=== PATIENT | female | born 1960 | race Two or more races ===

== ENCOUNTER 2021-04-20 12:38 | Outpatient (REF) | payer OTHER, MEDICAID, SELFPAY ==
--- NOTE | ~2021-04-20 | MM_ITS ---
EXAMINATION: BONE DENSITOMETRY CLINICAL INDICATION: Encounter for screening for osteoporosis. COMPARISON: None (current study represents initial baseline exam). TECHNIQUE: Using a Apaja DXA System (software version: 13.1) manufactured by [employer], dual-energy x-ray absorptiometry was performed of the lumbar spine and left hip. The images are of good technical quality. Summary results are attached. FINDINGS: AP SPINE L1-L4: BMD 1.015 g/cm2, Z-score -0.1, T-score -1.4, osteopenia. LEFT FEMUR, NECK: BMD 0.701 g/cm2, Z-score -1.1, T-score -2.4, osteopenia. LEFT FEMUR, TOTAL: BMD 0.810 g/cm2, Z-score -0.6, T-score -1.6, osteopenia. IDENTIFIED RISK FACTORS: Menopause, hysterectomy, bilateral oophorectomy. HISTORY OF FRACTURE: Pelvis, age 34. MEDICATIONS: Calcium or multivitamin. MM/XR DEXA axial skeleton IMPRESSION: 1. DIAGNOSIS: Osteopenia based on the lowest T-score value of -2.4 in the femoral neck applying World Health Organization criteria. 2. 10-YEAR FRACTURE RISK PREDICTION, FRAX: Major osteoporotic fracture (clinical spine, forearm, hip or shoulder) 6.7%. Hip fracture 1.2%. 3. Treatment Recommendations: NOF guidelines recommend consideration for treatment in postmenopausal women and men age 50 and older presenting with the following: -A hip or vertebral (clinical or morphometric) fracture. -T-score less than or equal to -2.5 at the femoral neck or spine after appropriate evaluation to exclude secondary causes. -Low bone mass at the hip or spine and a 10-year fracture probability by FRAX of greater than or equal to 3% for hip fracture or greater than or equal to 20% for major osteoporotic fracture based on the [place] adapted WHO algorithm. 4. Other Recommendations: All treatment decisions require clinical judgment and consideration of individual patient factors, including patient preferences, comorbidities, previous drug use, risk factors not captured in the FRAX model (e.g. frailty, falls, vitamin D deficiency, increased bone turnover, interval significant decline in bone density) and possible under or overestimation of fracture risk by FRAX. Additional medical evaluation for secondary cause of low bone mineral density may be appropriate. FUTURE SCAN RECOMMENDATION: People with diagnosed cases of osteoporosis or at high risk for fracture should have regular bone mineral density tests. For patients eligible for Medicare, routine testing is allowed once every 2 years. The testing frequency can be increased to one year for patients who have rapidly progressing disease, those who are receiving or discontinuing medical therapy to restore bone mass, or have additional risk factors.
== END 2021-04-20 12:39 | disposition home or self-care (01) ==
LOC: HO.MAMMO 12:38
PROVIDERS: PCP Nurse Practitioner; Visit Provider Nurse Practitioner
DX: Z13.820 Encounter for screening for osteoporosis (principal); M85.80 Other specified disorders of bone density and structure, unspecified site; Z78.0 Asymptomatic menopausal state; Z90.710 Acquired absence of both cervix and uterus; Z79.899 Other long term (current) drug therapy
CPT/HCPCS: 77080

== ENCOUNTER 2021-05-05 12:58 | Outpatient (REF) | payer OTHER, MEDICAID, SELFPAY ==
--- NOTE | ~2021-05-05 | MM_ITS ---
EXAMINATION: MM SCREENING DIGITAL BREAST TOMOSYNTHESIS, BILATERAL CLINICAL INFORMATION: Screening. Asymptomatic. Age 60. No prior breast imaging. No known family history breast cancer. The lifetime risk of breast cancer based on the Tyrer-Cuzick Model is 5%. COMPARISON: None (current study represents initial baseline exam). TECHNIQUE: Digital breast tomosynthesis is performed in both the craniocaudal and mediolateral oblique views along with computer-aided detection (CAD). Synthesized 2D images are generated from the tomosynthesis. FINDINGS: There are scattered areas of fibroglandular density (ACR BI-RADS breast composition Category b). There are no significant masses, abnormal calcifications, or other abnormalities. The axilla and skin contours are unremarkable. MM/MM tomosynthesis screening BI IMPRESSION: No mammographic evidence of malignancy. ASSESSMENT: BI-RADS 1: Negative RECOMMENDATION: Routine annual mammography screening. This patient's information was entered into a reminder system with a target due date for their next mammogram.
== END 2021-05-05 12:59 | disposition home or self-care (01) ==
LOC: HO.MAMMO 12:58
PROVIDERS: Visit Provider Nurse Practitioner
DX: Z12.31 Encounter for screening mammogram for malignant neoplasm of breast (principal)
CPT/HCPCS: 77063; 77067

== ENCOUNTER 2022-01-11 15:13 | Outpatient (REF) | payer OTHER, MEDICAID, SELFPAY ==
--- NOTE | ~2022-01-11 | XR_ITS ---
EXAMINATION: XR LUMBOSACRAL SPINE CLINICAL INFORMATION: Lumbago with sciatica right side COMPARISON: None TECHNIQUE: Three views of the lumbosacral spine. FINDINGS: There is normal lumbar lumbar lordosis. The vertebral heights, alignment and disc heights are normal. There is no visible acute fracture, dislocation or subluxation. SI joints are symmetrical and unremarkable XR/XR lumbar spine 2-3V IMPRESSION: Unremarkable lumbar spine examination.
== END 2022-01-11 15:14 | disposition home or self-care (01) ==
LOC: HO.XRAY 15:13
PROVIDERS: Visit Provider Emergency Medicine
DX: M54.41 Lumbago with sciatica, right side (principal)
CPT/HCPCS: 72100

== ENCOUNTER 2022-05-11 12:44 | Outpatient (REF) | payer OTHER, SELFPAY ==
--- NOTE | ~2022-05-11 | MM_ITS ---
EXAMINATION: MM SCREENING DIGITAL BREAST TOMOSYNTHESIS, BILATERAL CLINICAL INFORMATION: Screening. Asymptomatic. The lifetime risk of breast cancer based on the Tyrer-Cuzick Model is 4.1%. COMPARISON: Mammography: May 05, 2021 TECHNIQUE: Digital breast tomosynthesis is performed in both the craniocaudal and mediolateral oblique views along with computer-aided detection (CAD). Synthesized 2D images are generated from the tomosynthesis. FINDINGS: There are scattered areas of fibroglandular density (ACR BI-RADS breast composition Category b). There are no significant masses, abnormal calcifications, or other abnormalities. MM/MM tomosynthesis screening BI IMPRESSION: No significant changes from prior exam. ASSESSMENT: BI-RADS 1: Negative RECOMMENDATION: Routine annual mammography screening. This patient's information was entered into a reminder system with a target due date for their next mammogram.
== END 2022-05-11 12:45 | disposition home or self-care (01) ==
LOC: HO.MAMMO 12:44
PROVIDERS: PCP Registered Nurse; Visit Provider Nurse Practitioner
DX: Z12.31 Encounter for screening mammogram for malignant neoplasm of breast (principal)
CPT/HCPCS: 77063; 77067

== ENCOUNTER 2022-10-10 | Outpatient (REF) | payer OTHER, MEDICAID, SELFPAY | END 2022-10-10 00:01 | disposition home or self-care (01) | LOC: HO.HHCL | PROVIDERS: Visit Provider Registered Nurse | DX: R05.9 Cough, unspecified (principal); Z20.822 Contact with and (suspected) exposure to COVID-19 | CPT/HCPCS: 87070; 87636 ==

== ENCOUNTER 2022-12-08 08:49 | Outpatient (REF) | payer MEDICAID, OTHER, SELFPAY ==
[2022-12-08 11:13] LABS: MANUAL DIFF FLAG NO
[2022-12-08 11:32] LABS: Basophils Absolute Auto 0.1 X10*3/uL (0.0-0.2); Basophils Percent Auto 0.7 % (0-2); Eosinophils Absolute Auto 0.1 X10*3/uL (0.0-0.4); Eosinophils Percent Auto 1.7 % (0-4); Hematocrit 40.9 % (37.0-47.0); Hemoglobin 13.4 g/dl (12.0-16.0); Imm Gran Abs Auto 0.01 X10*3/uL (0.00-0.03); Imm Gran Pct Auto 0.1 % (0.0-0.4); Lymphocytes Absolute Auto 2.8 X10*3/uL (1.2-4.9); Lymphocytes Percent Auto 39.4 % (20-40); Mean Corpuscular HGB Conc 32.8 g/dl (31.0-35.0); Mean Corpuscular Hemoglobin 31.6 pg (27.0-33.0); Mean Corpuscular Volume 96.5 fL (80.0-98.0); Mean Platelet Volume 11.9 fL (9.4-12.3); Monocytes Absolute Auto 0.3 X10*3/uL (0.1-1.2); Monocytes Percent Auto 4.7 % (2-11); Neutrophils Absolute Auto 3.7 x10*3/uL (2.0-8.3); Neutrophils Percent Auto 53.4 % (45-73); Platelet Count 255 X10*3/uL (160-400); Red Blood Count 4.24 X10*6/uL (4.20-5.50)
[2022-12-08 11:58] LABS: Alanine Aminotransferase 26 U/L (0-31); Albumin Level 4.1 g/dL (3.5-5.0); Alkaline Phosphatase 59 U/L (39-117); Anion Gap 11 (12-20); Aspartate Amino Transferase 20 U/L (5-31); Bilirubin Total 0.8 mg/dL (0.0-1.0); Blood Urea Nitrogen 27 mg/dL (9-16); Calcium 9.6 mg/dL (8.4-10.2); Carbon Dioxide 27 mmol/L (22-29); Chloride 107 mmol/L (96-108); Estimated Glomerular Filt Rate 45; Glucose Random 148 mg/dL (60-115); Potassium 4.1 mmol/L (3.3-5.1); Sodium 141 mmol/L (135-145); Total Protein 7.4 g/dL (6.5-8.0)
[2022-12-11 10:09] LABS: HIV RNA PCR Qn Copies NOT DETECTED copies/mL (NOT DETECTED); HIV RNA PCR Qn Log Copies NOT DETECTED (NOT DETECTED)
== END 2022-12-08 08:50 | disposition home or self-care (01) ==
LOC: HO.HHCL 08:49
PROVIDERS: Visit Provider Internal Medicine
DX: B20 Human immunodeficiency virus [HIV] disease (principal)
CPT/HCPCS: 36415; 80053; 82550; 85025; 87536

== ENCOUNTER 2023-02-28 09:13 | Outpatient (AMB) | payer SELFPAY ==
--- NOTE | 2023-02-28 09:16 | A.OFFVIS_ITS ---
Intake Vital Signs 02/28/23 09:20 Height 5 ft 2 in Weight 132 lb 4.438 oz BMI 24.2 BP 140/57 H Blood Pressure Location Lt brachial Position Sitting Pulse 75 Intake Visit Reasons: laryngitis Intake Note: Anai presents in the office as a new patient. CC: She lost her voice a while ago. She was being treated for acid reflux and nothing seems to help so her PCP would like her to check her stomach. She gets a hot pain the last few days and she is not sure if it is gas pains. Allergies metformin Adverse Reaction (Mild, Verified 02/28/23 09:38) foot swelling HPI laryngitis HPI Details 62-year-old female with past medical his tory of hypertension, diabetes, hyperlipidemia is here today for initial consultation. Patient reports sore throat, dyspepsia, epigastric pain and bloating postprandially. Patient was seen by ENT and was referred to GI. Patient was started on omeprazole, takes on as needed basis. Patient reports that she has occasional postprandial abdominal bloating. Patient eats we, unable to eat apples as make her very bloated. Karine sid reports that she is moving her bowels daily for the most part. Patient states that she does feel like she empties completely. Occasionally patient might take laxative. Usually when she has bread she might get constipated. Patient states that she tries to eat healthy. Tries to keep her blood sugars low. Patient seen OBGYN at [facility] and was sent to see provider at [facility]. Patient believes that she had sigmoidoscopy done and was told that it was normal. Will send request for copy of her records from there. Patient denies melena, hematochezia, unintentional weight loss or ribbon like stools. Patient denies any dyspepsia, dysphagia or odynophagia today. Reports to have sinus issue that started 4 days ago. Patient is using Flonase twice a day. [facility] Surgical History (Updated 02/28/23 @ 09:21 by MISTY Ash) Hx of colonoscopy (Updated 02/28/23 @ 09:22 by MISTY Ash) Household Members: Children Alcohol intake: never Patient Tobacco Use Status: Never used Tobacco Review of Systems Const Denies weight gain and Denies weight loss ENT Reports no additional complaints, Denies dysphagia and Denies odynophagia Card Reports no additional complaints Resp Reports no additional complaints GI Reports abdominal pain (Epigastric), Denies belching, Denies melena, Reports bloating, Denies change in bowel habits, Denies dysphagia, Denies excessive flatus, Denies dyspepsia, Reports heartburn, Denies diarrhea, Denies loose stools, Denies nausea, Denies odynophagia and Denies vomiting Reports no additional complaints Musc Reports no additional complaints Neuro Reports no additional complaints Psych Reports no additional complaints Endo Reports no additional complaints Physical Exam Vital Signs: BMI result Body Mass Index 24.2 Const General: healthy appearing, no acute distress and well developed Nutritional Appearance: well nourished Orientation/consciousness: patient oriented x3 HEENT Head: Yes normal to inspection, Yes normocephalic and Yes atraumatic Face and sinus: Yes normal facial exam Mouth: Normal oral and palatal mucosa present Throat: Yes posterior oropharynx normal, Yes tonsils normal and Yes uvula midline Eyes General: appearance normal, both eyes and all related structures Neck Neck: Yes normal visual inspection, Yes full ROM and Yes trachea midline Thyroid: Thyroid normal Resp Effort & Inspection: normal respiratory effort, able to speak in complete sentences, no tracheal deviation and symmetric chest movement Auscultation: clear to auscultation bilaterally Cardio Rate: regular rate Heart sounds: S1 normal heart sound present and S2 normal heart sound present GI Inspection: Yes normal to inspection and No distended Palpation (GI): Soft to palpation, not firm, nontender and No hepatosplenomegaly present Auscultation: normal bowel sounds General: Yes no CVA tenderness Back/Spine/Pelvis Back: no CVA tenderness Skin General skin exam: elasticity normal, turgor normal and dry skin Neuro General: patient oriented x3 Psych Appearance: grossly normal Mental Status: mental status grossly normal Affect: normal affect Assessment & Plan Assessment & Plan (1) Postprandial abdominal bloating: Code(s): R14.0 - Abdominal distension (gaseous) (2) Postprandial epigastric pain: Code(s): R10.13 - Epigastric pain (3) GERD (gastroesophageal reflux disease): Code(s): K21.9 - Gastro-esophageal reflux disease without esophagitis Qualifiers: Esophagitis presence: esophagitis presence not specified Qualified Code(s): K21.9 - Gastro-esophageal reflux disease without esophagitis Plan Patient reports postprandial abdominal pain and bloating. Will rule out H pylori, celiac. Patient will follow FODMAP diet. List of food recommended as well as a soft food to avoid given to patient. Will check rest allergen, vitamin B12, folate, vitamin-D level. Patient will start taking Nexium. Patient states that she took Nexium many years ago for acid reflux and reports that was helpful. Discussed with patient avoiding dietary triggers in late night snacking. Staying upright for minimal 3 hours after meals discussed with patient. I will see patient in 6 weeks, sooner on as needed basis. Patient is agreeable to this plan and verbalizes understanding of instructions. She was given the opportunity to ask questions and all questions answered. Thank you for allowing me to participate in her care Orders: Orders H pylori Ag Stool Today K21.9 - Gastro-esophageal reflux disease without esophagitis Pancreatic Elastase-1 Today R10.9 - Unspecified abdominal pain Transglutaminase Ab IgG Today R10.9 - Unspecified abdominal pain Rast Allergen Today K21.9 - Gastro-esophageal reflux disease without esophagitis Transglutaminase IgA Today R10.9 - Unspecified abdominal pain Vitamin B12 and Folate Today R19.7 - Diarrhea, unspecified Vitamin D 25-OH (D2 and D3) Today E55.9 - Vitamin D deficiency, unspecified Medications: New esomeprazole magnesium (Nexium) 40 mg PO DAILY 30 caps 5RF K21.9 - Gastro- esophageal reflux disease without esophagitis Coding Level of Care Code New Pt Level 4 (71263) Diagnoses Postprandial abdominal bloating R14.0 Postprandial epigastric pain R10.13 Gastroesophageal reflux disease, unspecified whether esophagitis present K21.9 Esophagitis presence: esophagitis presence not specified Time Spent (min) 45 Comment 30 minutes spent with patient and additional 10 minutes spent reviewing her records
[2023-02-28 09:20] VITALS: BP 140/57; PULSE 75; BMI 24.2
== END 2023-02-28 10:08 | disposition home or self-care (01) ==
PROVIDERS: PCP Registered Nurse; Visit Provider Nurse Practitioner Family
DX: J04.0 Acute laryngitis (principal); K21.9 Gastro-esophageal reflux disease without esophagitis; R10.13 Epigastric pain
CPT/HCPCS: 99204

== ENCOUNTER 2023-02-28 09:13 | Outpatient (REF) | payer MEDICAID, OTHER, SELFPAY ==
[2023-02-28 11:57] LABS: Folate > 20.0 ng/mL (> or = 4.0); Vitamin B12 1074 pg/mL (200-900)
[2023-03-01 19:17] LABS: Transglutaminase Ab IgG <1.0 U/mL; Transglutaminase IgA <1.0 U/mL
[2023-03-04 13:33] LABS: Vitamin D 25-OH, D2 <4 ng/mL; Vitamin D 25-OH, D3 38 ng/mL; Vitamin D 25-OH, Total 38 ng/mL (30-100)
== END 2023-02-28 09:14 | disposition home or self-care (01) ==
LOC: HO.LAB 09:13
PROVIDERS: PCP Registered Nurse; Visit Provider Nurse Practitioner Family
DX: K21.9 Gastro-esophageal reflux disease without esophagitis (principal); R10.9 Unspecified abdominal pain; R19.7 Diarrhea, unspecified; E55.9 Vitamin D deficiency, unspecified; M72.0 Palmar fascial fibromatosis [Dupuytren]; M25.511 Pain in right shoulder; M79.641 Pain in right hand; I10 Essential (primary) hypertension; E11.9 Type 2 diabetes mellitus without complications; E78.5 Hyperlipidemia, unspecified; R10.13 Epigastric pain; J02.9 Acute pharyngitis, unspecified; R14.0 Abdominal distension (gaseous)
CPT/HCPCS: 36415; 82306; 82607; 82746; 86003; 86364; 99202; 99212

== ENCOUNTER 2023-02-28 10:54 | Outpatient (REF) | payer MEDICAID, OTHER, SELFPAY ==
--- NOTE | ~2023-02-28 | XR_ITS ---
EXAMINATION: XR HAND, RIGHT CLINICAL INFORMATION: Pain COMPARISON: None available. TECHNIQUE: Four views of the right hand. FINDINGS: No acute fracture or dislocation. Mild degenerative changes of the hand and wrist at distal interphalangeal joints with small osteophytes most notably involving the second and fifth DIP joints and subchondral cystic change in the wrist. Soft tissues are unremarkable. 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
== END 2023-02-28 10:55 | disposition home or self-care (01) ==
LOC: HO.HOSX 10:54
PROVIDERS: Visit Provider Orthopaedic Surgery
DX: M79.641 Pain in right hand (principal)
CPT/HCPCS: 73130

== ENCOUNTER 2023-02-28 13:42 | Outpatient (AMB) | payer SELFPAY ==
[2023-02-28 14:30] VITALS: BMI 24.1
--- NOTE | 2023-02-28 14:30 | MHC.OFFVIS ---
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 States she has small lumps at her MCP on lino aspect of hand. States this started about 3-4 months. Seen with a chiropractor who advised her to massage her hand. Patient also has limited ROM in her shoulder and is aware see may schedule an appt on her way out for shoulder evaluation. Hx of DM . States her last A1C was about 6.7 last time it was checked. 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 It is starting to limit her extension of the small finger at the MCP joint.. About 3 months ago she had some pain over the dorsal aspect of the right middle finger proximal phalanx with a painful vein. That seems to resolved on its own. She also complains of right shoulder pain which radiates down her arm, along with limited ROM. She sees a Chiropractor. She denies having trouble with numbness and tingling in her hands. She denies locking and catching, but reports that occasionally she will get a spasm in her hand. She is a Diabetic and says this is well-controlled. PFSH Surgical History (Updated 02/28/23 @ 09:21 by MISTY Ash) Hx of colonoscopy Social History (Updated 02/28/23 @ 09:22 by MISTY Ash) Household Members: Children Alcohol intake: never Patient Tobacco Use Status: Never used Tobacco Review of Systems Const All systems reviewed & are unremarkable except as noted in HPI and below Physical Exam Vital Signs: BMI result Body Mass Index 24.1 Const General: cooperative, healthy appearing and no acute distress Orientation/consciousness: patient oriented x3 HEENT Head: Yes normocephalic and Yes atraumatic Eyes EOM: EOMs intact bilaterally Resp Effort & Inspection: normal respiratory effort and able to speak in complete sentences Cardio Jugular venous distension: no JVD Skin General skin exam: turgor normal Rashes: no rashes Neuro General: patient oriented x3 Extrem Other: Evaluation of Right Upper Extremity: The patient is alert, oriented, and in no acute distress Neuro: Median, Ulnar, Radial nerves motor and sensory intact and sensation is normal to the tips of all digits Who thenar or intrinsic wasting. Vascular: Cap refill brisk ROM: She has a Dupuytrens contracture of the small finger, MCP 15-20/PIP 0 There is a cord extending from the mid palm out toward the small finger. She can make a fist and extend all her digits Skin: No lacerations or abrasions. General: No Ecchymosis. No Erythema or evidence of infection. Radiographs: 3 views of the right hand were taken and viewed by me today in clinic. They show no fractures or dislocations. She as some early basal joint osteoarthritis Psych Appearance: grossly normal Affect: normal affect Attitude: cooperative Assessment & Plan Assessment & Plan (1) Right shoulder pain: Code(s): M25.511 - Pain in right shoulder (2) Dupuytren's contracture of right hand: Code(s): M72.0 - Palmar fascial fibromatosis [Dupuytren] Plan Assessment & Plan: 1. Right small finger Dupuytrens contracture MCP 15-20/PIP 0 With a cord extending from the center of her palm I educated her about this condition I discussed operative and non-operative treatment options No acute intervention warranted at this time If her symptoms worsen she may benefit from surgery I recommend she remain active as tolerated 2. Right shoulder pain She will make an appointment to be seen regarding this I recommend she work on ROM exercises at home Scribed for Bronwyn Gonzalez MD by Desmond Moe, medical assistant supervisor, on 02/28/23 at 2:55 PM, EST. Orders: Orders XR hand RT min 3V Today M79.641 - Pain in right hand Coding Level of Care Code New Pt Level 3 (24339) Diagnoses Right shoulder pain M25.511 Dupuytren's contracture of right hand M72.0
== END 2023-02-28 15:10 | disposition home or self-care (01) ==
PROVIDERS: PCP Registered Nurse; Visit Provider Orthopaedic Surgery
DX: M25.511 Pain in right shoulder (principal); M72.0 Palmar fascial fibromatosis [Dupuytren]
CPT/HCPCS: 99203

== ENCOUNTER 2023-02-28 14:17 | Outpatient (REF) | payer OTHER, MEDICAID, SELFPAY ==
[2023-03-07 21:09] LABS: Pancreatic Elastase-1 >500 mcg/g
== END 2023-02-28 14:18 | disposition home or self-care (01) ==
LOC: HO.LNP 14:17
PROVIDERS: Visit Provider Nurse Practitioner Family
DX: K21.9 Gastro-esophageal reflux disease without esophagitis (principal); R10.9 Unspecified abdominal pain; M79.641 Pain in right hand; E55.9 Vitamin D deficiency, unspecified; R19.7 Diarrhea, unspecified
CPT/HCPCS: 82656; 87338

== ENCOUNTER 2023-04-05 13:44 | Outpatient (REF) | payer OTHER, SELFPAY | END 2023-04-05 13:45 | disposition home or self-care (01) | LOC: HO.HHCLNP 13:44 | PROVIDERS: Visit Provider Advanced Practice Midwife | DX: Z12.4 Encounter for screening for malignant neoplasm of cervix (principal); Z11.51 Encounter for screening for human papillomavirus (HPV) | CPT/HCPCS: 87624; 88142 ==

== ENCOUNTER 2023-04-05 16:40 | Outpatient (REF) | payer OTHER, SELFPAY ==
--- NOTE | ~2023-04-05 | XR_ITS ---
EXAMINATION: XR SHOULDER, RIGHT CLINICAL INFORMATION: Pain. COMPARISON: None available. TECHNIQUE: AP external rotation, Grashey, scapular Y, and axillary views of the right shoulder. FINDINGS: Bony alignment and mineralization are normal. The glenohumeral joint is intact. Acromioclavicular and coracoclavicular intervals are normal. There is mild osteoarthritic change of the acromioclavicular joint. No fracture or dislocation is seen. There is cortical irregularity of the greater tuberosity of the proximal right humerus. No soft tissue calcification or foreign body is seen. There is no right pneumothorax. XR/XR shoulder RT min 2V IMPRESSION: 1. No fracture or dislocation is seen. 2. There is mild osteoarthritic change of the right acromioclavicular joint. 3. There is cortical irregularity of the greater tuberosity of the proximal right humerus, which can be associated with rotator cuff impingement. No tova calcific tendinitis is seen.
== END 2023-04-05 16:41 | disposition home or self-care (01) ==
LOC: HO.HOSX 16:40
PROVIDERS: Visit Provider Orthopaedic Surgery
DX: M25.511 Pain in right shoulder (principal)
CPT/HCPCS: 73030

== ENCOUNTER 2023-04-06 10:56 | Outpatient (AMB) | payer OTHER, SELFPAY ==
--- NOTE | 2023-04-06 11:28 | MHC.OFFVIS ---
Intake Intake Visit Reasons: New Prob- Rt shoulder pain Intake Note: This is a 62 year old patient who reports right shoulder pain. X rays updated in the office today. She reports the pain has been happening for several years. She completed physical therapy for this issue in december and it did not help. She reports pain and limited range of motion and some difficulty with ADL's. She has tried accupuncture, chiropractor and exercise. Allergies metformin Adverse Reaction (Mild, Verified 04/06/23 11:33) foot swelling Medication List - Last Reconciled 04/06/23 by Cheyanne Duenas, PAULY aspirin 1 tab PO BEDTIME atorvastatin 20 mg PO QPM azelastine 1 spray intranasal BID xlimlznun-wianwchd-lqzshyq ala 50-200-25 mg (Biktarvy) 1 tab PO BEDTIME blood sugar diagnostic (FreeStyle Lite Strips) As directed calcium carbonate-vitamin D3 500 mg-10 mcg (400 unit) (Oyster Shell Calcium-Vitamin D3) 1 tab PO QAM docusate sodium 100 mg PO BEDTIME PRN empagliflozin (Jardiance) 25 mg PO QAM esomeprazole magnesium (Nexium) 40 mg PO DAILY ketotifen fumarate 0.025%(0.035%) (Eye Itch Relief) 1 drp ophthalmic (eye) BID lancets (TRUEplus Lancets) As directed lisinopril 5 mg PO QAM fweerstq-liw-LZ-lycopen-lutein 0.4 mg-300 mcg- 250 mcg (Cerovite Senior) 1 tab PO QAM sitagliptin phosphate (Januvia) 50 mg PO QAM vitamin B complex-folic acid 0.4 mg 1 tab PO QAM HPI New Prob- Rt shoulder pain HPI Details Anai is a 62 year old woman who presents with complaints of chronic right shoulder pain. She complains of pain with daily activity, along with limited ROM. She says her pain radiates down her arm at times. She feels limited in her ADLs at times by her poor function. She has found limited relief from PT, acupuncture, or seeing a Chiropractor in the past. [facility] Medical History (Updated 04/06/23 @ 15:39 by Jf Hays MD) Internal derangement of right shoulder Surgical History (Updated 02/28/23 @ 09:21 by Kenzie Dong, RMA) Hx of colonoscopy Social History (Updated 02/28/23 @ 09:22 by MISTY Ash) Household Members: Children Alcohol intake: never Patient Tobacco Use Status: Never used Tobacco Review of Systems Const All systems reviewed & are unremarkable except as noted in HPI and below Physical Exam Const General: no acute distress, alert and awake Orientation/consciousness: patient oriented x3 HEENT Head: Yes normocephalic and Yes atraumatic Eyes EOM: EOMs intact bilaterally Resp Effort & Inspection: normal respiratory effort and able to speak in complete sentences Cardio Jugular venous distension: no JVD Skin General skin exam: turgor normal Rashes: no rashes Neuro General: patient oriented x3 Extrem Other: 30/90/130/L5 4/5 empty can scapular recruitment with glenohumeral overhead motion Psych Appearance: grossly normal Affect: normal affect Attitude: cooperative Results Reviewed Results Reviewed: I personally reviewed relevant radiographs. nl shoulder radiographs Assessment & Plan Assessment & Plan (1) Internal derangement of right shoulder: Code(s): M24.811 - Other specific joint derangements of right shoulder, not elsewhere classified Plan: Weakness in abduction with altered mechabnics in setting of nl radiographs and no benefit with PT. MRI ordered Plan Scribed for Jf Hays MD by Desmond Moe, certified court/medical interpreter, on 04/06/23 at 11:40 AM, EST. Orders: Orders XR shoulder RT min 2V 04/06/23 M25.519 - Pain in unspecified shoulder MR shoulder RT wo con 04/06/23 M24.811 - Other specific joint derangements of right shoulder, not elsewhere classified Coding Level of Care Code Est Pt Level 4 (56123) Diagnoses Internal derangement of right shoulder M24.811
== END 2023-04-06 11:57 | disposition home or self-care (01) ==
PROVIDERS: PCP Registered Nurse; Visit Provider Orthopaedic Surgery
DX: M24.811 Other specific joint derangements of right shoulder, not elsewhere classified (principal)
CPT/HCPCS: 99214

== ENCOUNTER → 2023-04-06 10:56 | Outpatient (BNVA) | payer MEDICAID, OTHER, SELFPAY | PROVIDERS: PCP Registered Nurse; Visit Provider Orthopaedic Surgery | DX: M24.811 Other specific joint derangements of right shoulder, not elsewhere classified (principal) | CPT/HCPCS: 99212 ==

== ENCOUNTER 2023-04-11 09:30 | Outpatient (AMB) | payer OTHER, SELFPAY ==
--- NOTE | 2023-04-11 09:32 | A.OFFVIS_ITS ---
Intake Vital Signs 04/11/23 09:33 Height 5 ft 2 in Weight 132 lb 4.438 oz BMI 24.2 BP 158/60 H Blood Pressure Location Lt brachial Position Sitting Pulse 65 Intake Visit Reasons: 6 week follow up Intake Note: Anai presents in the office as a 6 week follow up. CC: She states that she had a test and just here for results. She still has issues in her stomach but they are not as bad as they were before. Allergies metformin Adverse Reaction (Mild, Verified 04/11/23 09:33) foot swelling HPI 6 week follow up HPI Details LAST VISIT Postprandial abdominal bloating Postprandial epigastric pain GERD (gastroesophageal reflux disease) Plan Patient reports postprandial abdominal pain and bloating. Will rule out H pylori, celiac. Patient will follow FODMAP diet. List of food recommended as well as a soft food to avoid given to patient. Will check rest allergen, vitamin B12, folate, vitamin-D level. Patient will start taking Nexium. Patient states that she took Nexium many years ago for acid reflux and reports that was helpful. Discussed with patient avoiding dietary triggers in late night snacking. Staying upright for minimal 3 hours after meals discussed with patient. I will see patient in 6 weeks, sooner on as needed basis. Patient is agreeable to this plan and verbalizes understanding of instructions. She was given the opportunity to ask questions and all questions answered. ? Thank you for allowing me to participate in her care Orders Orders H pylori Ag Stool Today K21.9 Pancreatic Elastase-1 Today R10.9 Transglutaminase Ab IgG Today R10.9 Rast Allergen Today K21.9 Transglutaminase IgA Today R10.9 Vitamin B12 and Folate Today R19.7 Vitamin D 25-OH (D2 and D3) Today E55.9 Medications New esomeprazole magnesium (Nexium) 40 mg PO DAILY 30 caps 5RF K21.9 TODAY'S VISIT: Patient is here today for follow-up and to discuss lab results. Patient had normal lab results. Reports that she is doing better taking Nexium. Her symptoms of acid reflux are suppressed for the most part. Patient however continues to have occasional acid reflux and dyspepsia depending on what she eats. Patient states that she is trying to control her diet and avoiding lactose. Patient would like to find specialist around here for anoscopy. Patient had endoscopy done in October of 2022 for a no canal lesion for management of ASCUS on Pap smear. 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 Patient has an appointment with her soon, however she does not have anyone to take her to the appointment. We will request a note from [facility] from her machine tank operator Dr. Mariann Hartley. Patient reports that she is moving her bowels well denies any rectal pain. Patient denies any melena, hematochezia, unintentional weight loss or ribbon like stools. Patient denies any mucus or any drainage from her rectum. [facility] Medical History (Updated 04/06/23 @ 15:39 by Jf Hays MD) Internal derangement of right shoulder Surgical History (Updated 02/28/23 @ 09:21 by MISTY Ash) Hx of colonoscopy Social History (Updated 02/28/23 @ 09:22 by MISTY Ash) Household Members: Children Alcohol intake: never Patient Tobacco Use Status: Never used Tobacco Review of Systems Const Denies weight gain and Denies weight loss ENT Reports no additional complaints, Denies dysphagia and Denies odynophagia Card Reports no additional complaints Resp Reports no additional complaints GI Denies abdominal pain, Denies belching, Denies melena, Denies bloating, Denies change in bowel habits, Denies dysphagia, Denies excessive flatus, Denies dyspepsia, Reports heartburn (occasional), Denies diarrhea, Denies loose stools, Denies nausea, Denies odynophagia and Denies vomiting Reports no additional complaints Musc Reports no additional complaints Neuro Reports no additional complaints Psych Reports no additional complaints Endo Reports no additional complaints Physical Exam Vital Signs: Last Vital Signs Pulse 65 04/11/23 09:33 BP 158/60 H 04/11/23 09:33 BMI result Body Mass Index 24.2 Const General: healthy appearing, no acute distress and well developed Nutritional Appearance: well nourished Orientation/consciousness: patient oriented x3 HEENT Head: Yes normal to inspection, Yes normocephalic and Yes atraumatic Face and sinus: Yes normal facial exam Mouth: Normal oral and palatal mucosa present Throat: Yes posterior oropharynx normal, Yes tonsils normal and Yes uvula midline Eyes General: appearance normal, both eyes and all related structures Neck Neck: Yes normal visual inspection, Yes full ROM and Yes trachea midline Thyroid: Thyroid normal Resp Effort & Inspection: normal respiratory effort, able to speak in complete sentences, no tracheal deviation and symmetric chest movement Auscultation: clear to auscultation bilaterally Cardio Rate: regular rate GI Inspection: Yes normal to inspection and No distended Palpation (GI): Soft to palpation, not firm, nontender and No hepatosplenomegaly present Auscultation: normal bowel sounds General: Yes no CVA tenderness Back/Spine/Pelvis Back: no CVA tenderness Skin General skin exam: elasticity normal, turgor normal and dry skin Neuro General: patient oriented x3 Psych Appearance: grossly normal Mental Status: mental status grossly normal Results Reviewed Results Reviewed: Laboratory Tests 02/28/23 02/28/23 02/28/23 10:28 10:28 11:03 Vitamin B12 1074 H 25-OH Vitamin D Total 38 Folate > 20.0 Stool Pancreat Elastase >500 Tiss Transglutamin IgG <1.0 Tiss Transglutamin IgA <1.0 Assessment & Plan Assessment & Plan (1) Postprandial abdominal bloating: Code(s): R14.0 - Abdominal distension (gaseous) (2) Postprandial epigastric pain: Code(s): R10.13 - Epigastric pain (3) GERD (gastroesophageal reflux disease): Code(s): K21.9 - Gastro-esophageal reflux disease without esophagitis Qualifiers: Esophagitis presence: esophagitis presence not specified Qualified Code (s): K21.9 - Gastro-esophageal reflux disease without esophagitis Plan Patient will continue diet modification. Avoiding dietary triggers. Avoid late night snacking. Low FODMAP diet discussed with patient. Request for medical records from her machine tank operator. Continue Nexium in the morning, continue Colace. I will see patient in 4 weeks we will discuss going for upper endoscopy and patient will be sent for colonoscopy. She is agreeable to this plan and verbalizes understanding of instructions. She was given the opportunity to ask questions and all questions answered. Thank you for allowing me to participate in her care Coding Level of Care Code Est Pt Level 4 (79945) Diagnoses Postprandial abdominal bloating R14.0 Postprandial epigastric pain R10.13 Gastroesophageal reflux disease, unspecified whether esophagitis present K21.9 Esophagitis presence: esophagitis presence not specified Time Spent (min) 35 Comment 20 minutes spent with patient and additional 15 minutes spent reviewing her records
[2023-04-11 09:33] VITALS: BP 158/60; PULSE 65; BMI 24.2
== END 2023-04-11 10:02 | disposition home or self-care (01) ==
PROVIDERS: PCP Registered Nurse; Visit Provider Nurse Practitioner Family
DX: R14.0 Abdominal distension (gaseous) (principal); R10.13 Epigastric pain; K21.9 Gastro-esophageal reflux disease without esophagitis
CPT/HCPCS: 99214

== ENCOUNTER → 2023-04-11 09:30 | Outpatient (BNVA) | payer OTHER, SELFPAY | PROVIDERS: PCP Registered Nurse; Visit Provider Nurse Practitioner Family | DX: R14.0 Abdominal distension (gaseous) (principal); R10.13 Epigastric pain; K21.9 Gastro-esophageal reflux disease without esophagitis | CPT/HCPCS: 99212 ==

== ENCOUNTER 2023-04-24 10:18 | Outpatient (AMB) | payer OTHER, SELFPAY ==
--- NOTE | 2023-04-24 10:21 | A.OFFVIS_ITS ---
Intake Intake Visit Reasons: Ov- Right shoulder MRI Review Intake Note: Anai is a 62 year old right hand dominant female who presents today for an MRI review of her right shoulder. Pain ongoing for several years now. MRI done at [facility] Allergies metformin Adverse Reaction (Mild, Verified 04/11/23 09:33) foot swelling HPI Ov- Right shoulder MRI Review HPI Details Anai is a 62 year old woman with chronic right shoulder pain, who presents for an MRI review. She complains of pain with daily activity, along with limited ROM. She feels limited in her ADLs at times by her poor function. She has found limited relief from PT, acupuncture, or seeing a Chiropractor in the past. [facility] Medical History (Updated 04/24/23 @ 10:47 by Jf Hays MD) Internal derangement of right shoulder Surgical History (Updated 02/28/23 @ 09:21 by MISTY Ash) Hx of colonoscopy Social History (Updated 02/28/23 @ 09:22 by MISTY Ash) Household Members: Children Alcohol intake: never Patient Tobacco Use Status: Never used Tobacco Review of Systems Const All systems reviewed & are unremarkable except as noted in HPI and below Physical Exam Const General: no acute distress, alert and awake Orientation/consciousness: patient oriented x3 HEENT Head: Yes normocephalic and Yes atraumatic Eyes EOM: EOMs intact bilaterally Resp Effort & Inspection: normal respiratory effort and able to speak in complete sentences Cardio Jugular venous distension: no JVD Skin General skin exam: turgor normal Rashes: no rashes Neuro General: patient oriented x3 Extrem Other: 5 deg ER on right compared to 55 on left Psych Appearance: grossly normal Affect: normal affect Attitude: cooperative Results Reviewed Results Reviewed: I personally reviewed relevant radiographs. small supraspinatus partial thickness tear Assessment & Plan Assessment & Plan (1) Adhesive capsulitis of right shoulder: Code(s): M75.01 - Adhesive capsulitis of right shoulder Plan: Clear adhesive capsulitis PT f/u 3 mo Plan Prepared for Jf Hays MD by Desmond Moe, medical advisor, on 04/24/23 at 10:31 AM, EST. Orders: Orders PT Evaluation and Treatment Today M75.01 - Adhesive capsulitis of right shoulder Coding Level of Care Code Est Pt Level 4 (38572) Diagnoses Adhesive capsulitis of right shoulder M75.01
== END 2023-04-24 10:56 | disposition home or self-care (01) ==
PROVIDERS: PCP Registered Nurse; Visit Provider Orthopaedic Surgery
DX: M75.01 Adhesive capsulitis of right shoulder (principal)
CPT/HCPCS: 99213

== ENCOUNTER → 2023-04-24 10:18 | Outpatient (BNVA) | payer OTHER, SELFPAY | PROVIDERS: PCP Registered Nurse; Visit Provider Orthopaedic Surgery | DX: M75.01 Adhesive capsulitis of right shoulder (principal) | CPT/HCPCS: 99212 ==

== ENCOUNTER 2023-05-09 09:07 | Outpatient (AMB) | payer OTHER, SELFPAY ==
--- NOTE | 2023-05-09 09:11 | MHC.OFFVIS ---
Intake Vital Signs 05/09/23 09:16 Height 5 ft 2 in Weight 130 lb BMI 23.8 BP 147/68 H Blood Pressure Location Lt brachial Position Sitting Pulse 62 Intake Visit Reasons: 4 week follow up Intake Note: Patient 4 weeks follow up for GERD. Patient cc: acid reflex on and off na d sometimes constipation come and go. Denies any other GI issues. [employer] Manager Required: No Accompanied by: Self / Same As Patient Allergies metformin Adverse Reaction (Mild, Verified 05/09/23 09:11) foot swelling HPI 4 week follow up HPI Details LAST VISIT: HPI Patient is here today for follow-up and to discuss lab results. Patient had normal lab results. Reports that she is doing better taking Nexium. Her symptoms of acid reflux are suppressed for the most part. Patient however continues to have occasional acid reflux and dyspepsia depending on what she eats. Patient states that she is trying to control her diet and avoiding lactose. Patient would like to find specialist around here for anoscopy. Patient had endoscopy done in October of 2022 for anal canal lesion for management of ASCUS on Pap smear. 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 Patient has an appointment with her soon, however she does not have anyone to take her to the appointment. We will request a note from [facility] from her fur glazer Dr. Mariann Hartley. Patient reports that she is moving her bowels well denies any rectal pain. Patient denies any melena, hematochezia, unintentional weight loss or ribbon like stools. Patient denies any mucus or any drainage from her rectum. ASSESSMENT AND PLAN Postprandial abdominal bloating Postprandial epigastric pain GERD (gastroesophageal reflux disease) Plan Patient will continue diet modification. Avoiding dietary triggers. Avoid late night snacking. Low FODMAP diet discussed with patient. Request for medical records from her fur glazer. Continue Nexium in the morning, continue Colace. I will see patient in 4 weeks we will discuss going for upper endoscopy and patient will be sent for colonoscopy. She is agreeable to this plan and verbalizes understanding of instructions. She was given the opportunity to ask questions and all questions answered. ? TODAY'S VISIT Patient is here today for follow-up and to discuss going for colonoscopy. Patient had her last appointment with rectal surgeon last month. Patient requested to switch to stay closer, however patient states that her provider send her to [facility]. Patient is due to go for colonoscopy. As mentioned above patient has a history of HIV on Biktarvy. Reports that Nexium is helping her, however depending on what she eats she might have acid reflux and postprandial abdominal bloating. Patient reports that she is moving her bowels without any issues. Denies any melena, hematochezia, unintentional weight loss or ribbon like stools. Patient reports occasional dyspepsia without dysphagia or odynophagia. Patient denies any issues with anesthesia in the past. On low-dose aspirin. Denies any history of sleep apnea. Patient currently takes medications for her diabetes. Denies any cardiac or respiratory symptoms. [facility] Medical History (Updated 05/09/23 @ 13:24 by Christiana Rosas, [facility]) Rectal lesion Internal derangement of right shoulder Surgical History Hx of colonoscopy Social History Household Members: Children Alcohol intake: never Patient Tobacco Use Status: Never used Tobacco Review of Systems Const Denies weight gain and Denies weight loss ENT Reports no additional complaints, Denies dysphagia and Denies odynophagia Card Reports no additional complaints Resp Reports no additional complaints GI Reports abdominal pain (Epigastric), Denies belching, Denies melena, Reports bloating, Denies change in bowel habits, Denies dysphagia, Denies excessive flatus, Reports dyspepsia, Reports heartburn, Denies diarrhea, Denies loose stools, Denies nausea, Denies odynophagia and Denies vomiting Reports no additional complaints Musc Reports no additional complaints Neuro Reports no additional complaints Psych Reports no additional complaints Endo Reports no additional complaints Physical Exam Vital Signs: Last Vital Signs Pulse 62 05/09/23 09:16 BP 147/68 H 05/09/23 09:16 BMI result Body Mass Index 23.8 Const General: healthy appearing, no acute distress and well developed Nutritional Appearance: well nourished Orientation/consciousness: patient oriented x3 Resp Effort & Inspection: normal respiratory effort, able to speak in complete sentences, no tracheal deviation and symmetric chest movement Auscultation: clear to auscultation bilaterally Cardio Rate: regular rate GI Inspection: Yes normal to inspection and No distended Palpation (GI): Soft to palpation, not firm, nontender and No hepatosplenomegaly present Auscultation: normal bowel sounds General: Yes no CVA tenderness Back/Spine/Pelvis Back: no CVA tenderness Skin General skin exam: elasticity normal, turgor normal and dry skin Neuro General: patient oriented x3 Psych Appearance: grossly normal Mental Status: mental status grossly normal Assessment & Plan Assessment & Plan (1) Postprandial abdominal bloating: Code(s): R14.0 - Abdominal distension (gaseous) (2) Postprandial epigastric pain: Code(s): R10.13 - Epigastric pain (3) GERD (gastroesophageal reflux disease): Code(s): K21.9 - Gastro-esophageal reflux disease without esophagitis Qualifiers: Esophagitis presence: esophagitis presence not specified Qualified Code(s): K21.9 - Gastro-esophageal reflux disease without esophagitis (4) Screen for colon cancer: Code(s): Z12.11 - Encounter for screening for malignant neoplasm of colon (5) Rectal lesion: Code(s): K62.9 - Disease of anus and rectum, unspecified Plan Continue Nexium. Patient can take famotidine at bedtime to help her with dyspepsia. However patient was encouraged to continue avoiding dietary triggers and late night snacking. Staying upright for minimal 3 hours after meals discussed with patient. Patient will be sent for upper endoscopy to rule out gastritis, duodenitis, esophagitis, Jin's, duodenal or gastric ulcers. Patient will be sent for colonoscopy. Discussed with patient the importance of good bowel prep day before procedure as well as clear liquid diet. What to expect before during and after procedure discussed with patient. History of HIV on Biktarvy. On low-dose aspirin. No history of sleep apnea. No issues with anesthesia in the past. I will see patient after the procedure, sooner on as needed basis. Patient is agreeable to this plan and verbalizes understanding of instructions. She was given the opportunity to ask questions and all questions answered. Thank you for allowing me to participate in care Please check rectum for any lesions if seen sent for biopsy Medications: New polyethylene glycol 3350 (Miralax) As directed by gastroenterology department at [facility] 238 grams PO ONCE 238 grams 0RF Z12.11 - Encounter for screening for malignant neoplasm of colon famotidine (Pepcid) 20 mg PO BEDTIME 30 tabs 3RF K21.9 - Gastro-esophageal reflux disease without esophagitis bisacodyl (Dulcolax (bisacodyl)) take 4 tabs at noon the day before your colonoscopy 20 mg (4 x 5 mg) PO ONCE 1 day 4 tabs 0RF Z12.11 - Encounter for screening for malignant neoplasm of colon Refilled esomeprazole magnesium (Nexium) 40 mg PO DAILY 30 caps 5RF K21.9 - Gastro-esophageal reflux disease without esophagitis Coding Level of Care Code Est Pt Level 4 (05780) Diagnoses Postprandial abdominal bloating R14.0 Postprandial epigastric pain R10.13 Gastroesophageal reflux disease, unspecified whether esophagitis present K21.9 Esophagitis presence: esophagitis presence not specified Screen for colon cancer Z12.11 Rectal lesion K62.9 Time Spent (min) 40 Comment 25 minutes spent with patient and additional 15 minutes spent reviewing her records
[2023-05-09 09:16] VITALS: BP 147/68; PULSE 62; BMI 23.8
== END 2023-05-09 10:24 | disposition home or self-care (01) ==
PROVIDERS: PCP Registered Nurse; Visit Provider Nurse Practitioner Family
DX: R14.0 Abdominal distension (gaseous) (principal); R10.13 Epigastric pain; K21.9 Gastro-esophageal reflux disease without esophagitis; Z12.11 Encounter for screening for malignant neoplasm of colon; K62.9 Disease of anus and rectum, unspecified
CPT/HCPCS: 99214

== ENCOUNTER → 2023-05-09 09:07 | Outpatient (BNVA) | payer OTHER, SELFPAY | PROVIDERS: PCP Registered Nurse; Visit Provider Nurse Practitioner Family | DX: Z12.11 Encounter for screening for malignant neoplasm of colon (principal); K21.9 Gastro-esophageal reflux disease without esophagitis; K62.9 Disease of anus and rectum, unspecified; R14.0 Abdominal distension (gaseous); R10.13 Epigastric pain | CPT/HCPCS: 99212 ==

== ENCOUNTER 2023-05-17 08:02 | Outpatient (REF) | payer OTHER, SELFPAY ==
--- NOTE | ~2023-05-17 | MM_ITS ---
EXAMINATION: BONE DENSITOMETRY CLINICAL INDICATION: Postmenopausal. History of pelvic fracture. COMPARISON: Baseline BD dated 04/20/2021. TECHNIQUE: Using a Vertigo DXA System (software version: 13.1) manufactured by [employer], dual-energy x-ray absorptiometry was performed of the lumbar spine and left hip. The images are of good technical quality. Summary results are attached. FINDINGS: LEFT FEMUR, NECK: Current: BMD 0.809 g/cm2, Z-score -0.3, T-score -1.6, osteopenia. Baseline: BMD 0.701 g/cm2. LEFT FEMUR, TOTAL: Current: BMD 0.860 g/cm2, Z-score -0.1, T-score -1.2, osteopenia, 6.2% increase from baseline (<5% change is not significant). Baseline: BMD 0.810 g/cm2. AP SPINE L1-L4: Current: BMD 1.016 g/cm2, Z-score 0.1, T-score -1.4, osteopenia, 0.1% increase from baseline (<5% change is not significant). Baseline: BMD 1.015 g/cm2. IDENTIFIED RISK FACTORS: Early menopause, history of fracture (adult), hysterectomy, bilateral oophorectomy, secondary osteoporosis. HISTORY OF FRACTURE: Pelvis. MEDICATIONS: Calcium or multivitamin. Vitamin D. MM/XR DEXA axial skeleton IMPRESSION: 1. DIAGNOSIS: Osteopenia based on the lowest T-score value of -1.6 in the femoral neck applying World Health Organization criteria. 2. 10-YEAR FRACTURE RISK PREDICTION, FRAX: Major osteoporotic fracture (clinical spine, forearm, hip or shoulder) 8.8%. Hip fracture 1.0%. 3. Treatment Recommendations: NOF guidelines recommend consideration for treatment in postmenopausal women and men age 50 and older presenting with the following: -A hip or vertebral (clinical or morphometric) fracture. -T-score less than or equal to -2.5 at the femoral neck or spine after appropriate evaluation to exclude secondary causes. -Low bone mass at the hip or spine and a 10-year fracture probability by FRAX of greater than or equal to 3% for hip fracture or greater than or equal to 20% for major osteoporotic fracture based on the [place] adapted WHO algorithm. 4. Other Recommendations: All treatment decisions require clinical judgment and consideration of individual patient factors, including patient preferences, comorbidities, previous drug use, risk factors not captured in the FRAX model (e.g. frailty, falls, vitamin D deficiency, increased bone turnover, interval significant decline in bone density) and possible under or overestimation of fracture risk by FRAX. Additional medical evaluation for secondary cause of low bone mineral density may be appropriate. FUTURE SCAN RECOMMENDATION: People with diagnosed cases of osteoporosis or at high risk for fracture should have regular bone mineral density tests. For patients eligible for Medicare, routine testing is allowed once every 2 years. The testing frequency can be increased to one year for patients who have rapidly progressing disease, those who are receiving or discontinuing medical therapy to restore bone mass, or have additional risk factors.
== END 2023-05-17 08:03 | disposition home or self-care (01) ==
LOC: HO.MAMMO 08:02
PROVIDERS: PCP Physician Assistant; Visit Provider Advanced Practice Midwife
DX: Z12.31 Encounter for screening mammogram for malignant neoplasm of breast (principal); Z13.820 Encounter for screening for osteoporosis; Z78.0 Asymptomatic menopausal state
CPT/HCPCS: 77063; 77067; 77080

== ENCOUNTER → 2023-05-17 09:15 | Outpatient (BNV) | payer OTHER, SELFPAY | PROVIDERS: PCP Physician Assistant; Visit Provider Radiology Diagnostic Radiology | DX: Z12.31 Encounter for screening mammogram for malignant neoplasm of breast (principal) | CPT/HCPCS: 77063; 77067 ==

== ENCOUNTER 2023-06-23 08:36 | Outpatient (REF) | payer OTHER, SELFPAY ==
[2023-06-23 11:35] LABS: Appearance Urine Clear; Color Urine Yellow; Glucose Urine UA >=1000 mg/dL (Negative); Leukocyte Esterase Urine Negative (Negative); Nitrite Urine Negative (Negative); PH 5.5 (5.0-9.0); Specific Gravity - Urine >= 1.030 (1.005-1.025); UMIC TRIGGER UACC YES; Urine Blood Negative (Negative); Urine Ketones Negative (Negative); Urine Protein Negative (Neg-Trace)
[2023-06-23 11:36] LABS: MANUAL DIFF FLAG NO
[2023-06-23 11:42] LABS: Basophils Percent Auto 0.5 % (0-2); Eosinophils Absolute Auto 0.2 X10*3/uL (0.0-0.4); Eosinophils Percent Auto 3.5 % (0-4); Hematocrit 37.1 % (37.0-47.0); Hemoglobin 12.1 g/dl (12.0-16.0); Imm Gran Abs Auto 0.01 X10*3/uL (0.00-0.03); Imm Gran Pct Auto 0.2 % (0.0-0.4); Lymphocytes Absolute Auto 2.8 X10*3/uL (1.2-4.9); Lymphocytes Percent Auto 44.6 % (20-40); Mean Corpuscular HGB Conc 32.6 g/dl (31.0-35.0); Mean Corpuscular Hemoglobin 31.1 pg (27.0-33.0); Mean Corpuscular Volume 95.4 fL (80.0-98.0); Mean Platelet Volume 11.1 fL (9.4-12.3); Monocytes Absolute Auto 0.4 X10*3/uL (0.1-1.2); Monocytes Percent Auto 6.3 % (2-11); Neutrophils Absolute Auto 2.8 x10*3/uL (2.0-8.3); Neutrophils Percent Auto 44.9 % (45-73); Platelet Count 273 X10*3/uL (160-400); Red Blood Count 3.89 X10*6/uL (4.20-5.50); Red Cell Distribution Width 14.6 % (11.0-16.0); White Blood Count 6.2 X10*3/uL (4.8-10.8)
[2023-06-23 12:01] LABS: Bacteria Urine Trace (None Seen); Hyaline Casts Urine 0-2 /LPF (0-2); RBC Urine 0-2 /HPF (0-2); UACC Culture Trigger YES
[2023-06-23 12:15] LABS: Alanine Aminotransferase 46 U/L (0-31); Albumin Level 4.1 g/dL (3.5-5.0); Alkaline Phosphatase 71 U/L (39-117); Anion Gap 12 (12-20); Aspartate Amino Transferase 32 U/L (5-31); Bilirubin Total 0.5 mg/dL (0.0-1.0); Blood Urea Nitrogen 21 mg/dL (9-16); Carbon Dioxide 28 mmol/L (22-29); Chloride 107 mmol/L (96-108); Cholesterol 87 mg/dL (<200); Estimated Glomerular Filt Rate 55; Glucose Random 106 mg/dL (60-115); HDL Cholesterol 29 mg/dL (>40); LDL Cholesterol Calculated 45 mg/dL (<100); Potassium 4.1 mmol/L (3.3-5.1); Sodium 143 mmol/L (135-145); Total Protein 7.5 g/dL (6.5-8.0); Triglycerides 66 mg/dL (<150)
[2023-06-23 13:12] LABS: Reflex LDLD? No
[2023-06-24 11:58] LABS: Absolute CD3 Count 1942 cells/uL (840-3060); Absolute CD4 Count 993 cells/uL (490-1740); Absolute CD8 Count 920 cells/uL (180-1170); Absolute Lymphocytes 2942 cells/uL (850-3900); CD4 CD8 Ratio 1.08 (0.86-5.00); Percent CD3 Cells 66 % (57-85); Percent CD4 Cells 34 % (30-61); Percent CD8 Cells 31 % (12-42)
[2023-06-24 15:33] LABS: HIV RNA PCR Qn Copies 134 copies/mL (NOT DETECTED); HIV RNA PCR Qn Log Copies 2.13 (NOT DETECTED)
[2023-06-25 22:28] LABS: TS Negative Control Passed; TS Panel A 0; TS Panel B 0; TS Positive Control Passed; TSpotTB Negative (Negative)
[2023-06-26 04:13] LABS: Syphilis Screen Nonreactive (Nonreactive)
[2023-06-26 04:23] LABS: ~Hepatitis C Antibody Nonreactive (Nonreactive)
== END 2023-06-23 08:37 | disposition home or self-care (01) ==
LOC: HO.HHCL 08:36
PROVIDERS: Visit Provider Internal Medicine
DX: B20 Human immunodeficiency virus [HIV] disease (principal)
CPT/HCPCS: 36415; 80053; 80061; 81001; 85025; 86359; 86360; 86481; 86780; 86803; 87086; 87536

== ENCOUNTER 2023-06-27 13:21 | Day surgery (SDC) | payer OTHER, SELFPAY ==
--- NOTE | 2023-06-26 10:02 | HO.ANESPROP2 ---
Documented by User: Gali Woodard NP 06/26/23 10:07 HPI - Anesthesia Eval Consult details Narrative: 63yo F for Upper Endoscopy and Colonoscopy Anesthesia Pre-Procedure Meds Is the patient on any of the following meds?: Any other SGL-1 drugs or drugs that delay gastric emptying (Januvia) PMFSH Active Problems Active Problems: All Active Problems (Updated 05/09/23 @ 13:[address] [facility]) Rectal lesion (Acute) Adhesive capsulitis of right shoulder (Acute) Internal derangement of right shoulder (Acute) Dupuytren's contracture of right hand (Acute) Right shoulder pain (Acute) Past Medical History Medical History HIV (human immunodeficiency virus infection) Rectal lesion Internal derangement of right shoulder Surgical History Surgical History Hx of colonoscopy Social History Social History Household Members: Children Alcohol intake: never Patient Tobacco Use Status: Never used Tobacco Meds Allergies Allergy/AdvReac Type Severity Reaction Status Date / Time metformin AdvReac Mild foot Verified 05/09/23 09:11 swelling Home Medications Medication Instructions Recorded Confirmed Last Taken Type aspirin 81 mg chewable tablet 1 tab PO BEDTIME 02/28/23 04/06/23 Unknown History atorvastatin 20 mg tablet 20 mg PO QPM 02/28/23 04/06/23 Unknown History azelastine 137 mcg (0.1 %) nasal 1 spray intranasal BID 02/28/23 04/06/23 Unknown History spray aerosol bictegravir 50 mg-emtricitabine 1 tab PO BEDTIME 02/28/23 04/06/23 Unknown History 200 mg-tenofovir alafenam 25 mg tablet (Biktarvy) blood sugar diagnostic (FreeStyle #10 ea 02/28/23 04/06/23 Unknown History Lite Strips) calcium carbonate 500 mg-vitamin 1 tab PO QAM 02/28/23 04/06/23 Unknown History D3 10 mcg (400 unit) tablet (Oyster Shell Calcium-Vitamin D3) docusate sodium 100 mg capsule 100 mg PO BEDTIME PRN constipation 02/28/23 04/06/23 Unknown History empagliflozin 25 mg tablet 25 mg PO QAM diabetes mellitus 02/28/23 04/06/23 06/24/23 History (Jardiance) ketotifen fumarate 0.025 % (0.035 1 drp ophthalmic (eye) BID 02/28/23 04/06/23 Unknown History %) eye drops (Eye Itch Relief) lancets 33 gauge (TRUEplus Lancets) #100 ea 02/28/23 04/06/23 Unknown History lisinopril 5 mg tablet 5 mg PO QAM blood pressure 02/28/23 04/06/23 Unknown History mtmkqhld-lor-oildl acid 0.4 1 tab PO QAM 02/28/23 04/06/23 Unknown History mg-lycopene 300 mcg-lutein 250 mcg tablet (Cerovite Senior) sitagliptin phosphate 50 mg tablet 50 mg PO QAM diabetes mellitus 02/28/23 04/06/23 06/24/23 History (Januvia) vitamin B complex-folic acid 0.4 1 tab PO QAM 02/28/23 04/06/23 Unknown History mg tablet fluticasone propionate 50 1 - 2 spray intranasal DAILY PRN 04/11/23 Unknown History mcg/actuation nasal spray,suspension Exam Pertinent Lab Results Pertinent Lab Results: Laboratory Tests 06/23/23 08:39 WBC 6.2 Hgb 12.1 Hct 37.1 Plt Count 273 Sodium 143 Potassium 4.1 Chloride 107 Carbon Dioxide 28 BUN 21 H Creatinine 1.01 Assessment and Plan Assessment Anesthesia Assessment: Chart Reviewed Documented by User: Wade Atwood MD 06/29/23 12:51 HPI - Anesthesia Eval Anesthesia Pre-Procedure Meds If Yes to any meds - educate patient: Pt education - increased risk of aspiration and Pt education - possibility of cancelled proc at provider's discretion PMFSH Past Medical History Medical History HIV (human immunodeficiency virus infection) Rectal lesion Internal derangement of right shoulder Family History Family history of problems with anesthesia: No Surgical History Surgical History Hx of colonoscopy History of Problems with Anesthesia: No Social History Social History Household Members: Children Alcohol intake: never Patient Tobacco Use Status: Never used Tobacco Meds Allergies Allergy/AdvReac Type Severity Reaction Status Date / Time metformin AdvReac Mild foot Verified 05/09/23 09:11 swelling Home Medications Medication Instructions Recorded Confirmed Last Taken Type aspirin 81 mg chewable tablet 1 tab PO BEDTIME 02/28/23 04/06/23 Unknown History atorvastatin 20 mg tablet 20 mg PO QPM 02/28/23 04/06/23 Unknown History azelastine 137 mcg (0.1 %) nasal 1 spray intranasal BID 02/28/23 04/06/23 Unknown History spray aerosol bictegravir 50 mg-emtricitabine 1 tab PO BEDTIME 02/28/23 04/06/23 Unknown History 200 mg-tenofovir alafenam 25 mg tablet (Biktarvy) blood sugar diagnostic (FreeStyle #10 ea 02/28/23 04/06/23 Unknown History Lite Strips) calcium carbonate 500 mg-vitamin 1 tab PO QAM 02/28/23 04/06/23 Unknown History D3 10 mcg (400 unit) tablet (Oyster Shell Calcium-Vitamin D3) docusate sodium 100 mg capsule 100 mg PO BEDTIME PRN constipation 02/28/23 04/06/23 Unknown History empagliflozin 25 mg tablet 25 mg PO QAM diabetes mellitus 02/28/23 04/06/23 06/24/23 History (Jardiance) ketotifen fumarate 0.025 % (0.035 1 drp ophthalmic (eye) BID 02/28/23 04/06/23 Unknown History %) eye drops (Eye Itch Relief) lancets 33 gauge (TRUEplus Lancets) #100 ea 02/28/23 04/06/23 Unknown History lisinopril 5 mg tablet 5 mg PO QAM blood pressure 02/28/23 04/06/23 Unknown History cwlbxkpk-ari-kkpgu acid 0.4 1 tab PO QAM 02/28/23 04/06/23 Unknown History mg-lycopene 300 mcg-lutein 250 mcg tablet (Hector Bejarano) sitagliptin phosphate 50 mg tablet 50 mg PO QAM diabetes mellitus 02/28/23 04/06/23 06/24/23 History (Robi) vitamin B complex-folic acid 0.4 1 tab PO QAM 02/28/23 04/06/23 Unknown History mg tablet fluticasone propionate 50 1 - 2 spray intranasal DAILY PRN 04/11/23 Unknown History mcg/actuation nasal spray,suspension Exam Airway Mallampati Class: II TM Dist: >3cm Neck ROM: Full Assessment and Plan Assessment Anesthesia Assessment: Anesthesia Plan Discussed Final Anesthetic Review Family History of Problems with Anesthesia: No History of Problems with Anesthesia: No NPO: Yes ASA Class: III Final Preanesthetic Review: No Changes in Pt Med Stat, Meds/Allgs Chart Reviewed, Consent Obtained/Reviewed and Anes Risks/Benef Reviewed Patient Risk: Intermediate Procedure Risk: Low Anesthetic Plan Anesthetic Plan: MAC: Disposition: Standard PACU
[2023-06-27 13:45] LABS: Glucose, Whole Blood 95 mg/dL (60-115)
[2023-06-27 13:51] VITALS: BMI 23.9
[2023-06-27 13:53] VITALS: BP 156/67; PULSE 59; RESP 18; TEMP 36.4; O2SAT 100
[2023-06-27] MEDS: Lactated Ringers 1,000 ML 100 ML IVCONT (14:25)
--- NOTE | 2023-06-27 14:28 | MHC.SHP ---
Pre-Procedural Eval Section A - 24 Hr Update-Section A only Date of Service: 06/27/23 Section B - Complete if H&P > 30 days Chief Complaint: GERD, hx of HIV and AIN Details of Present Illness: PMH: Anal lesion Internal derangement of right shoulder Surgical History Hx of colonoscopy Present Medications: see Short Stay Collaborative assessment Allergies: Allergies Allergy/AdvReac Type Severity Reaction Status Date / Time metformin AdvReac Mild foot Verified 05/09/23 09:11 swelling Review of Systems Review of Systems Comment: Ten point ROS negative Exam Exam Comment: Gen appear: No acute distress HEENT: no icterus Chest: No overt resp distress Abd: soft, nontender, nondistended Psych: Stable affect, answering questions appropriately Neuro: A/Ox3 noted to move all extremities spontaneously Ext: no peripheral edema Plan Diagnosis/Plan: Unchanged I have reviewed the history and physical and performed a pertinent physical examination on my patient. No changes have occurred unless specified. Time Spent With Patient Time: Total time managing care of this patient today ____ minutes.
--- NOTE | 2023-06-27 14:30 | P.OP_ITS ---
Operative Note Operative Note Date of Service: 06/27/23 Narrative: Procedure: Upper endoscopy and colonoscopy Indication: Reflux, Hx of HIV, AIN Endoscopist: Becca Vizcaino MD Anesthesia Provider: Dr Atwood Anesthesia type: MAC Instrument: Olympus [id number] ?? EGD Procedure:?? The procedure, indications, preparation and potential complications were reviewed with the patient, who indicated understanding and gave written informed consent to proceed. A physical exam was performed. The endoscope was introduced through the mouth, and advanced to the duodenum. The mucosa was carefully examined on slow withdrawal of the endoscope. The patient tolerated the procedure well. There were no immediate complications.? ? EGD Findings:? * Esophagus:? A localized patch of heterotopic gastric mucosa was present in the upper esophagus, otherwise normal esophageal mucosa was noted with Z line at 34 cm. A small hiatal hernia was present with the diaphragmatic hiatus at 37 cm. * Stomach:? Normal gastric mucosa. Retroflexion was performed in the cardia that showed a Hill grade 2 hiatal hernia. Random cold forceps biopsies were taken to rule out H Pylori. * Duodenum: Erythema and ulceration duodenal bulb were noted. Cold forceps biopsies were taken for histology. Colonoscopy Procedure: The patient was then turned for the colonoscopy. A digital rectal exam was performed which was abnormal for ext hemorrhoids. A distal attachment cap was affixed to the tip of the scope which was then inserted through the anus and advanced through the colon to the cecum at 70 cm and terminal ileum. Appendiceal orifice and ileocecal valve were identified. Mucosa was carefully examined under high definition white light as the instrument was slowly withdrawn in a retrograde panoramic fashion. Retroflexion was performed in the rectum. The procedure was not difficult. There were no immediate obvious complications. The quality of the prep was BBPS: 2+2+2 = adequate Limitations: No limitations Colonoscopy Findings: Mucosa: Normal to cecum and terminal ileum. Protruding lesions: * Nine sessile polyp ranging from size 2-6 mm were present in the cecum. Cold snare polypectomy was performed. Polyps were completely removed and retrieved. * Too numerous to count polyps were present in the right colon. 16 larger and adenomatous appearing polyps ranging in size 4-8 mm were removed with a cold snare and retrieved. * Medium internal hemorrhoids Excavated lesions: * A few scattered diverticula were noted in L colon and a single diverticulum was noted in ascending colon. Impressions:? * Normal esophagus * Hiatal hernia * Normal stomach (biopsy) * Bulbar duodenitis (biopsy) * Too numerous to count polyps in R colon - 25 removed today. * Diverticulosis * External and internal hemorrhoids Recommendations: - Follow path results - Increase nexium to twice a day - If H pylori pos, will need eradication tx - Avoid NSAIDs - Depending on path for polyps may need another colo in a year ( suspect may have serrated polyposis) as well as genetic testing to r/o polyposis syndrome - Pt was counseled that this procedure does not replace EUA for surveillance of AIN hx and she should establish care with colorectal surgery for regular anal paps and EUA as needed.
[2023-06-27 15:35] VITALS: BP 179/73; PULSE 52; RESP 18; TEMP 36.1; O2SAT 100
[2023-06-27 15:50] VITALS: BP 154/52; PULSE 58; RESP 16; TEMP 36.1; O2SAT 96
== END 2023-06-27 16:12 | disposition home or self-care (01) ==
PROVIDERS: PCP Physician Assistant; Visit Provider Internal Medicine
PROC: (CPT 45385; principal; 2023-06-27 15:10)
DX: Z12.11 Encounter for screening for malignant neoplasm of colon (principal); D12.0 Benign neoplasm of cecum; D12.3 Benign neoplasm of transverse colon; K57.30 Diverticulosis of large intestine without perforation or abscess without bleeding; K64.8 Other hemorrhoids; K64.4 Residual hemorrhoidal skin tags; K62.82 Dysplasia of anus; R10.13 Epigastric pain; K21.9 Gastro-esophageal reflux disease without esophagitis; Q39.8 Other congenital malformations of esophagus; K29.80 Duodenitis without bleeding; K26.9 Duodenal ulcer, unspecified as acute or chronic, without hemorrhage or perforation; K44.9 Diaphragmatic hernia without obstruction or gangrene; B20 Human immunodeficiency virus [HIV] disease; Z79.899 Other long term (current) drug therapy; Z79.82 Long term (current) use of aspirin; Z79.84 Long term (current) use of oral hypoglycemic drugs; Z79.51 Long term (current) use of inhaled steroids; Z88.8 Allergy status to other drugs, medicaments and biological substances
CPT/HCPCS: 45385; 43239; 82947; 88305; 88313; 88342; J2704

== ENCOUNTER → 2023-06-27 13:21 | Outpatient (BNV) | payer OTHER, SELFPAY | PROVIDERS: PCP Physician Assistant; Visit Provider Internal Medicine | DX: K21.9 Gastro-esophageal reflux disease without esophagitis (principal); K29.80 Duodenitis without bleeding; Z21 Asymptomatic human immunodeficiency virus [HIV] infection status; K26.9 Duodenal ulcer, unspecified as acute or chronic, without hemorrhage or perforation; D12.0 Benign neoplasm of cecum; D12.3 Benign neoplasm of transverse colon; K57.90 Diverticulosis of intestine, part unspecified, without perforation or abscess without bleeding; K62.9 Disease of anus and rectum, unspecified | CPT/HCPCS: 43239; 45385 ==

== ENCOUNTER 2023-07-11 10:26 | Outpatient (AMB) | payer OTHER, SELFPAY ==
--- NOTE | 2023-07-11 10:28 | A.OFFVIS_ITS ---
Vital Signs 07/11/23 11:02 Height 5 ft 2 in Weight 132 lb 4.438 oz BMI 24.2 BP 138/72 Blood Pressure Location Lt brachial Position Sitting Pulse 72 Intake Visit Reasons: S/P Double; Dr. Vizcaino, discuss genetic testing Intake Note: Anai presents in the office as a follow up egd and colo. CC: She states that she has coughing in the night and sinus is acting up. Allergies metformin Adverse Reaction (Mild, Verified 07/11/23 11:02) foot swelling HPI HPI S/P Double; Dr. Vizcaino, discuss genetic testing: Details: LAST VISIT Postprandial abdominal bloating Postprandial epigastric pain GERD (gastroesophageal reflux disease) Screen for colon cancer Rectal lesion Plan Continue Nexium. Patient can take famotidine at bedtime to help her with dyspepsia. However patient was encouraged to continue avoiding dietary triggers and late night snacking. Staying upright for minimal 3 hours after meals discussed with patient. Patient will be sent for upper endoscopy to rule out gastritis, duodenitis, esophagitis, Jin's, duodenal or gastric ulcers. Patient will be sent for colonoscopy. Discussed with patient the importance of good bowel prep day before procedure as well as clear liquid diet. What to expect before during and after procedure discussed with patient. History of HIV on Biktarvy. On low-dose aspirin. No history of sleep apnea. No issues with anesthesia in the past. I will see patient after the procedure, sooner on as needed basis. Patient is agreeable to this plan and verbalizes understanding of instructions. She was given the opportunity to ask questions and all questions answered. ? Thank you for allowing me to participate in care ? Please check rectum for any lesions if seen sent for biopsy Medications New polyethylene glycol 3350 (Miralax) As directed by gastroenterology department at [facility] 238 grams PO ONCE 238 grams 0RF Z12.11 famotidine (Pepcid) 20 mg PO BEDTIME 30 tabs 3RF K21.9 bisacodyl (Dulcolax (bisacodyl)) take 4 tabs at noon the day before your colonoscopy 20 mg (4 x 5 mg) PO ONCE 1 day 4 tabs 0RF Z12.11 Refilled esomeprazole magnesium (Nexium) 40 mg PO DAILY 30 caps 5RF K21.9 UPPER ENDOSCOPY AND COLONOSCOPY EGD Findings:? * Esophagus:? A localized patch of heterotopic gastric mucosa was present in the upper esophagus, otherwise normal esophageal mucosa was noted with Z line at 34 cm. A small hiatal hernia was present with the diaphragmatic hiatus at 37 cm. * Stomach:? Normal gastric mucosa. Retroflexion was performed in the cardia that showed a Hill grade 2 hiatal hernia. Random cold forceps biopsies were taken to rule out H Pylori. * Duodenum: Erythema and ulceration duodenal bulb were noted. Cold forceps biopsies were taken for histology. Colonoscopy Procedure: The patient was then turned for the colonoscopy. A digital rectal exam was performed which was abnormal for ext hemorrhoids. A distal attachment cap was affixed to the tip of the scope which was then inserted through the anus and advanced through the colon to the cecum at 70 cm and terminal ileum. Appendiceal orifice and ileocecal valve were identified. Mucosa was carefully examined under high definition white light as the instrument was slowly withdrawn in a retrograde panoramic fashion. Retroflexion was performed in the rectum. The procedure was not difficult. There were no immediate obvious complications. The quality of the prep was BBPS: 2+2+2 = adequate Limitations: No limitations Colonoscopy Findings: Mucosa: Normal to cecum and terminal ileum. Protruding lesions: * Nine sessile polyp ranging from size 2-6 mm were present in the cecum. Cold snare polypectomy was performed. Polyps were completely removed and retrieved. * Too numerous to count polyps were present in the right colon. 16 larger and adenomatous appearing polyps ranging in size 4-8 mm were removed with a cold snare and retrieved. * Medium internal hemorrhoidsExcavated lesions: * A few scattered diverticula were noted in L colon and a single diverticulum was noted in ascending colon. Impressions:? * Normal esophagus * Hiatal hernia * Normal stomach (biopsy) * Bulbar duodenitis (biopsy) * Too numerous to count polyps in R colon - 25 removed today. * Diverticulosis * External and internal hemorrhoids Recommendations: - Follow path results - Increase nexium to twice a day - If H pylori pos, will need eradication tx - Avoid NSAIDs - Depending on path for polyps may need another colo in a year ( suspect may have serrated polyposis) as well as genetic testing to r/o polyposis syndrome - Pt was counseled that this procedure does not replace EUA for surveillance of AIN hx and she should establish care with colorectal surgery for regular anal paps and EUA as needed. PATHOLOGY RESULTS Diagnosis A. Duodenum, biopsy: Duodenal mucosa with preserved villi, prominent Ernesto's glands, and focal mild increase in intraepithelial lymphocytes (see comment). B. Stomach, random, biopsy: Gastric antral and body mucosa with minimal chronic inactive gastritis and features suggesting proton pump inhibitor effect; negative for H. pylori intestinal metaplasia and dysplasia. C. Colon, transverse, polyps: Tubular adenomas (multiple pieces); negative for high-grade dysplasia and carcinoma. D. Colon, cecal polyps: Tubular adenomas (multiple pieces); negative for high- grade dysplasia and carcinoma. Comment: (A): No ulcer is identified. The increase in intraepithelial lymphocytes is mild and does not show a villous tip-heavy pattern. The long differential for this non-specific finding includes celiac-sprue and serologic studies may be helpfu TODAY'S VISIT Patient is here today for follow-up and to discuss upper endoscopy and colonoscopy results. Patient denies any ill effects from the prep, anesthesia or procedure itself. Patient reports that she has been taking Nexium and has not her symptoms of acid reflux are suppressed, however occasionally at night time patient reports that she has experiences heartburn. Multiple tubular adenoma found on colonoscopy. Twenty-five polyps removed from right side of her colon. Patient will need to go for genetic testing and establish care with colorectal surgeon. Patient denies any abdominal pain or discomfort. Denies melena, hematochezia, unintentional weight loss or ribbon like stools. Patient denies any nausea or vomiting. Denies any other GI concerning symptoms. [facility] Medical History (Updated 07/21/23 @ 10:51 by JACKIE Proctor) Polyposis of colon Tubular adenoma of colon HIV (human immunodeficiency virus infection) Rectal lesion Internal derangement of right shoulder Surgical History History of esophagogastroduodenoscopy (EGD) Hx of colonoscopy Social History Household Members: Children Alcohol intake: never Patient Tobacco Use Status: Never used Tobacco Review of Systems Const Denies weight gain and Denies weight loss ENT Reports no additional complaints, Denies dysphagia and Denies odynophagia Card Reports no additional complaints Resp Reports no additional complaints GI Denies abdominal pain, Denies belching, Denies melena, Denies bloating, Denies change in bowel habits, Denies dysphagia, Denies excessive flatus, Denies dyspepsia, Denies heartburn, Denies diarrhea, Denies loose stools, Denies nausea, Denies odynophagia and Denies vomiting Reports no additional complaints Musc Reports no additional complaints Neuro Reports no additional complaints Psych Reports no additional complaints Endo Reports no additional complaints Physical Exam Vital Signs: Last Vital Signs Pulse 72 07/11/23 11:02 BP 138/72 07/11/23 11:02 BMI result Body Mass Index 24.2 Const General: healthy appearing, no acute distress and well developed Nutritional Appearance: well nourished Orientation/consciousness: patient oriented x3 Resp Effort & Inspection: normal respiratory effort, able to speak in complete sentences, no tracheal deviation and symmetric chest movement Auscultation: clear to auscultation bilaterally Cardio Rate: regular rate GI Inspection: Yes normal to inspection and No distended Palpation (GI): Soft to palpation, not firm, nontender and No hepatosplenomegaly present Auscultation: normal bowel sounds General: Yes no CVA tenderness Back/Spine/Pelvis Back: no CVA tenderness Skin General skin exam: elasticity normal, turgor normal and dry skin Neuro General: patient oriented x3 Psych Appearance: grossly normal Mental Status: mental status grossly normal Assessment & Plan Assessment & Plan (1) Rectal lesion: Code(s): K62.9 - Disease of anus and rectum, unspecified Category: Medical (2) Tubular adenoma of colon: Code(s): D12.6 - Benign neoplasm of colon, unspecified Category: Medical (3) Polyposis of colon: Code(s): K63.5 - Polyp of colon Category: Medical (4) Postprandial abdominal bloating: Code(s): R14.0 - Abdominal distension (gaseous) (5) Postprandial epigastric pain: Code(s): R10.13 - Epigastric pain (6) GERD (gastroesophageal reflux disease): Code(s): K21.9 - Gastro-esophageal reflux disease without esophagitis Qualifiers: Esophagitis presence: esophagitis presence not specified Qualified Code(s): K21.9 - Gastro-esophageal reflux disease without esophagitis Plan Continue Nexium in the morning. Patient can take famotidine at bedtime. Avoid dietary triggers and late night snacking. Staying upright for minimum 3 hours after meals discussed with patient. Will do genetic testing in the office constantino gannon. Discussed with patient referral to general surgeon for EUA to check for AIN and to establish care. Colonoscopy will be rechecked in 1 year. Patient will return in the office in 2 months, sooner on as needed basis. Patient is agreeable to this plan and verbalizes understanding of instructions. She was given the opportunity to ask questions and all questions answered. Thank you for allowing me to participate in her care Medications: Refilled famotidine (Pepcid) 20 mg PO BEDTIME 30 tabs 3RF K21.9 - Gastro-esophageal reflux disease without esophagitis
[2023-07-11 11:02] VITALS: BP 138/72; PULSE 72; BMI 24.2
== END 2023-07-11 11:55 | disposition home or self-care (01) ==
PROVIDERS: PCP Registered Nurse; Visit Provider Nurse Practitioner Family
DX: K62.9 Disease of anus and rectum, unspecified (principal); D12.6 Benign neoplasm of colon, unspecified; K63.5 Polyp of colon; R14.0 Abdominal distension (gaseous); R10.13 Epigastric pain; K21.9 Gastro-esophageal reflux disease without esophagitis
CPT/HCPCS: 99214

== ENCOUNTER → 2023-07-11 10:26 | Outpatient (BNVA) | payer OTHER, SELFPAY | PROVIDERS: PCP Registered Nurse; Visit Provider Nurse Practitioner Family | DX: D12.6 Benign neoplasm of colon, unspecified (principal); K63.5 Polyp of colon; K21.9 Gastro-esophageal reflux disease without esophagitis; R14.0 Abdominal distension (gaseous); R10.13 Epigastric pain; Z79.82 Long term (current) use of aspirin | CPT/HCPCS: 99212 ==

== ENCOUNTER 2023-07-24 10:51 | Outpatient (AMB) | payer OTHER, SELFPAY ==
--- NOTE | 2023-07-24 10:53 | MHC.OFFVIS ---
Vital Signs 07/24/23 10:56 Height 5 ft 2 in Weight 133 lb BMI 24.3 Handedness Right Intake Visit Reasons: Ov- Right shoulder adhesive capsulitis Intake Note: Anai is a 63 year old right hand dominant female who presents today for a follow up of her right shoulder adhesive capsulitis. She was instructed to continue PT. Patient reports she is starting to use right arm more with ROM improvement but PT says she needs more work. Allergies metformin Adverse Reaction (Mild, Verified 07/24/23 10:56) foot swelling HPI HPI Ov- Right shoulder adhesive capsulitis: Details: Anai is a 63 year old right hand dominant female who presents today for a follow up of her right shoulder adhesive capsulitis. She was instructed to continue PT. Patient reports she is starting to use right arm more with ROM improvement but PT says she needs more work. PFSH Medical History Polyposis of colon Tubular adenoma of colon HIV (human immunodeficiency virus infection) Rectal lesion Internal derangement of right shoulder Surgical History History of esophagogastroduodenoscopy (EGD) Hx of colonoscopy Social History Household Members: Children Alcohol intake: never Patient Tobacco Use Status: Never used Tobacco Physical Exam Vital Signs: BMI result Body Mass Index 24.3 Extrem Other: ER to 20 deg can get hand to back of head Assessment & Plan Assessment & Plan (1) Adhesive capsulitis of right shoulder: Code(s): M75.01 - Adhesive capsulitis of right shoulder Category: Medical Plan: Improving Continue PT f/u prn
[2023-07-24 10:56] VITALS: BMI 24.3
== END 2023-07-24 11:04 | disposition home or self-care (01) ==
LOC: HO.HOS 10:51
PROVIDERS: PCP Registered Nurse; Visit Provider Orthopaedic Surgery
DX: M75.01 Adhesive capsulitis of right shoulder (principal)
CPT/HCPCS: 99212

== ENCOUNTER → 2023-07-24 10:51 | Outpatient (BNVA) | payer OTHER, SELFPAY | PROVIDERS: PCP Registered Nurse; Visit Provider Orthopaedic Surgery | DX: M75.01 Adhesive capsulitis of right shoulder (principal) | CPT/HCPCS: 99212 ==

== ENCOUNTER 2023-08-10 11:00 | Outpatient (RCR) | payer OTHER, SELFPAY ==
--- NOTE | 2023-05-17 14:17 | MHC.PT.EP ---
[facility] [place] Office [place] Office [place] Office [address] [phone] F: [phone] F: [phone] F: [phone] F: [phone] Physical Therapy Plan of Care Date of Evaluation: 05/17/23 Date of Surgery: Diagnosis: Adhesive Capsulitis of R shoulder. Assessment: Patient is a 62 year old R handed female who presents with s/s consistent with adhesive capsulitis of R shoulder, R shoulder pain. 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 Patient past medical history includes HTN, HIV. Current impairments include pain, posture, ROM, strength, activity tolerance and functional mobility. Functional limitations include decreased ability to sleep, lift, carry, push, pull, and reach. Patient is motivated with good rehab potential. Skilled PT will address impairments and functional limitations in order to achieve goals. Frequency and Duration: The patient will be seen 1x/week for 8 weeks Short Term Goals: I with HEP - 2 weeks AROM flexion and abd to 110 - 3 weeks ER 40 - 4 weeks Implant Polisher Goals: AROM flexion and abd 140 - 8 weeks SPADI 30/130 - 8 weeks ER/IR 60 each - 8 weeks Strength 4/5 grossly - 8 weeks Treatment Plan: Modalities to reduce pain, spasms and effusion. Manual therapy to restore motion and function. Therapeutic exercise to improve strength and flexibility. Neuromuscular re-education for posture and balance. Therapeutic activities to return to functional activities of daily living. Electronically signed by: Samson Beltrán, PT Please sign and return to therapist. Thank you for your referral.
--- NOTE | 2023-12-18 15:03 | MHC.PT.DC ---
[facility] [place] Office [place] Office [place] [facility] [address] [place] [address] [phone] F: [phone] F: [phone] F: [phone] F: [phone] Physical Therapy Discharge Report Diagnosis: Adhesive Capsulitis of R shoulder. Date of Surgery: Date of Evaluation: 05/17/23 Date of Discharge: 08/20/23 Treatments to Date: 12 Cancellations to Date: No Shows to Date: Discharge Status: Independent with HEP Discharge Summary: 08/10/23: I with HEP. All LTGs met. motivated and compliant throughout. appropriate to d/c to H[facility] at this time. 08/03/23: pt continues to progress well. strength ROM improving. continue to progress as tolerated. 07/27/23: pt continues to see steady improvement with ROM and strength. we will continue to progress as tolerated. 07/20/23: pt has been feeling better overall. ROM improving. overhead strength improving. continue to progress as tolerated. 07/13/23: pt still limited with abd and ER. we will continue to progress these as well as strength intervention. we agreed on 1x/week for 4 more weeks. 07/06/23: pt progressing well with ROM. no adverse reactions. continue to progress as tolerated. 06/21; Pt sh flexion 135 after passive stretching. Pt exs 1 x daily. 06/15/23: pt progressing well still. compliant with HEP. we will continue to progress as tolerated. 06/08/23: pt progressing well with skilled PT. ROM improving. discomfort is less. ; Pt arrived 15 min late due to lift ride. Pt limited with ROM and muscle tissue tightness into c/s. NV PROM/mobs as quinn. 05/25/23: progressed with ROM/stretching. no adverse reactions. continue to progress as tolerated. Patient is a 62 year old R handed female who presents with s/s consistent with adhesive capsulitis of R shoulder, R shoulder pain. 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 Patient past medical history includes HTN, HIV. Current impairments include pain, posture, ROM, strength, activity tolerance and functional mobility. Functional limitations include decreased ability to sleep, lift, carry, push, pull, and reach. Patient is motivated with good rehab potential. Skilled PT will address impairments and functional limitations in order to achieve goals. Electronically signed by: Samson Beltrán, PT Please sign and return to therapist. Thank you for your referral.
== END 2023-12-18 15:04 | disposition home or self-care (01) ==
LOC: HO.PTCHIC 11:00
PROVIDERS: PCP Physician Assistant; Visit Provider Orthopaedic Surgery
DX: M75.01 Adhesive capsulitis of right shoulder (principal)
CPT/HCPCS: 97110; 97140; 97162

== ENCOUNTER 2023-08-22 08:58 | Outpatient (AMB) | payer OTHER, SELFPAY ==
--- NOTE | 2023-08-22 09:04 | A.OFFVIS_ITS ---
Vital Signs 08/22/23 09:17 Height 5 ft 2 in Weight 130 lb 1.164 oz BMI 23.8 BP 163/69 H Blood Pressure Location Lt brachial Position Sitting Intake Visit Reasons: 6 week follow up Intake Note: Anai presents in the office as a 6 week follow up. CC: She states that she is still having consitpation and having bleeding when she has a BM. She tries the best to eat better and she finds since her colonoscopy her bowels have changed. When she sits she has a pain in her tailbone and she is not sure why. Director Of People Required: No Allergies metformin Adverse Reaction (Mild, Verified 08/22/23 09:17) foot swelling HPI HPI 6 week follow up: Details: LAST VISIT: Rectal lesion Tubular adenoma of colon Polyposis of colon Postprandial abdominal bloating Postprandial epigastric pain GERD (gastroesophageal reflux disease) Plan Continue Nexium in the morning. Patient can take famotidine at bedtime. Avoid dietary triggers and late night snacking. Staying upright for minimum 3 hours after meals discussed with patient. Will do genetic testing in the office today. Discussed with patient referral to general surgeon for EUA to check for AIN and to establish care. Colonoscopy will be rechecked in 1 year. Patient will return in the office in 2 months, sooner on as needed basis. Patient is agreeable to this plan and verbalizes understanding of instructions. She was given the opportunity to ask questions and all questions answered. ? Thank you for allowing me to participate in her care Medications Refilled famotidine (Pepcid) 20 mg PO BEDTIME 30 tabs 3RF K21.9 TODAY'S VISIT Patient is here today for follow-up. Patient reports that she has been moving her bowels better, however she continues to feel like she does not empty her bowels completely. Patient reports lower back pain and coccyx bone pain. Patient states that since she lost weight she is unable to sit for prolonged period of time. Patient denies any injury or fall. Patient reports that she is trying to eat better. He eats more fruits and vegetables. Patient states that she is avoiding sugars. Patient states that she is taking Colace however she does not feel like it is helping as much. Patient does report that she has to strain sometimes and will see blood when she wipes after bowel movement. Patient is taking Nexium in the morning and famotidine at bedtime and states that her symptoms of acid reflux are suppressed. Patient denies eating late at night. 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 Patient denies dyspepsia, dysphagia or odynophagia. Denies melena, hematochezia, unintentional weight loss or ribbon like stools. [facility] Medical History Polyposis of colon Tubular adenoma of colon HIV (human immunodeficiency virus infection) Rectal lesion Internal derangement of right shoulder Surgical History History of esophagogastroduodenoscopy (EGD) Hx of colonoscopy Social History Household Members: Children Alcohol intake: never Patient Tobacco Use Status: Never used Tobacco Review of Systems Const Denies weight gain and Denies weight loss ENT Reports no additional complaints, Denies dysphagia and Denies odynophagia Card Reports no additional complaints Resp Reports no additional complaints GI Denies abdominal pain, Denies belching, Denies melena, Denies bloating, Reports hematochezia (When wiping occasionally), Reports constipation, Denies dysphagia, Denies excessive flatus, Denies dyspepsia, Denies heartburn, Denies diarrhea, Denies loose stools, Denies nausea, Denies odynophagia and Denies vomiting Musc Reports no additional complaints Neuro Reports no additional complaints Psych Reports no additional complaints Endo Reports no additional complaints Physical Exam Vital Signs: Last Vital Signs BP 163/69 H 08/22/23 09:17 BMI result Body Mass Index 23.8 Const General: healthy appearing, no acute distress and well developed Nutritional Appearance: well nourished Orientation/consciousness: patient oriented x3 Resp Effort & Inspection: normal respiratory effort, able to speak in complete senten edgard, no tracheal deviation and symmetric chest movement Auscultation: clear to auscultation bilaterally Cardio Rate: regular rate GI Inspection: Yes normal to inspection and No distended Palpation (GI): Soft to palpation, not firm, nontender and No hepatosplenomegaly present Auscultation: normal bowel sounds General: Yes no CVA tenderness Back/Spine/Pelvis Back: no CVA tenderness Skin General skin exam: elasticity normal, turgor normal and dry skin Neuro General: patient oriented x3 Psych Appearance: grossly normal Mental Status: mental status grossly normal Assessment & Plan Assessment & Plan (1) Rectal lesion: Code(s): K62.9 - Disease of anus and rectum, unspecified Category: Medical (2) Tubular adenoma of colon: Code(s): D12.6 - Benign neoplasm of colon, unspecified Category: Medical (3) Polyposis of colon: Code(s): K63.5 - Polyp of colon Category: Medical (4) Postprandial abdominal bloating: Code(s): R14.0 - Abdominal distension (gaseous) (5) Postprandial epigastric pain: Code(s): R10.13 - Epigastric pain (6) GERD (gastroesophageal reflux disease): Code(s): K21.9 - Gastro-esophageal reflux disease without esophagitis Qualifiers: Esophagitis presence: without esophagitis Qualified Code(s): K21.9 - Gastro-esophageal reflux disease without esophagitis Plan Continue Nexium and famotidine. Avoid dietary triggers and late night snacking. Staying upright for minimum 3 hours after meals discussed with patient. Genetic testing discussed with patient. Results were negative no clinically significant mutation identified. Patient will start taking MiraLax daily. Increase fluid intake and activity to promote better bowel motility. Avoid straining may also take stool softeners. May use Proctosol as needed, Sitz baths with Epsom salts. Patient will follow-up in, sooner on as needed basis. She is agreeable to this plan and verbalizes understanding of instructions. She was given the opportunity to ask questions and all questions answered. Thank you for allowing me to participate in her care Medications: New polyethylene glycol 3350 (Miralax) 17 grams PO DAILY 510 grams 2RF Coding Level of Care Code Est Pt Level 4 (34267) Diagnoses Rectal lesion K62.9 Tubular adenoma of colon D12.6 Polyposis of colon K63.5 Postprandial abdominal bloating R14.0 Postprandial epigastric pain R10.13 Gastroesophageal reflux disease without esophagitis K21.9 Esophagitis presence: without esophagitis Time Spent (min) 35 Comment 25 minutes spent with patient and additional 10 minutes spent reviewing her records
[2023-08-22 09:17] VITALS: BP 163/69; BMI 23.8
== END 2023-08-22 10:05 | disposition home or self-care (01) ==
PROVIDERS: PCP Registered Nurse; Visit Provider Nurse Practitioner Family
DX: K62.9 Disease of anus and rectum, unspecified (principal); D12.6 Benign neoplasm of colon, unspecified; K63.5 Polyp of colon; R14.0 Abdominal distension (gaseous); R10.13 Epigastric pain; K21.9 Gastro-esophageal reflux disease without esophagitis
CPT/HCPCS: 99214

== ENCOUNTER → 2023-08-22 08:58 | Outpatient (BNVA) | payer OTHER, SELFPAY | PROVIDERS: PCP Registered Nurse; Visit Provider Nurse Practitioner Family | DX: K62.9 Disease of anus and rectum, unspecified (principal); K63.5 Polyp of colon; K21.9 Gastro-esophageal reflux disease without esophagitis; D12.6 Benign neoplasm of colon, unspecified; R14.0 Abdominal distension (gaseous); R10.13 Epigastric pain | CPT/HCPCS: 99212 ==

== ENCOUNTER 2023-10-11 09:17 | Outpatient (AMB) | payer OTHER, SELFPAY ==
--- NOTE | 2023-10-11 09:18 | A.OFFVIS_ITS ---
Vital Signs 10/11/23 09:24 Height 5 ft 2 in Weight 133 lb BMI 24.3 BP 161/71 H Blood Pressure Location Rt brachial Position Sitting Pulse 68 Intake Visit Reasons: Hx of AIN, needs to establish care and for EUA Intake Note: This patient presents for an assessment Hx of AIN. Patient c/o; reports no complaints at this time. Sexual Assault Counsellor Required: No Accompanied by: Self / Same As Patient Allergies metformin Adverse Reaction (Mild, Verified 10/11/23 09:25) foot swelling lactose Adverse Reaction (Verified 10/11/23 09:25) Intolerance Medication List - Last Reconciled 10/11/23 by Misbah Sexton MD acetaminophen (Pain Relief Extra Strength (acetaminophen)) 500 mg PO Q6H PRN aspirin 1 tab PO BEDTIME atorvastatin 20 mg PO QPM azelastine 1 spray intranasal BID hwphvhgsi-ibktmsrh-awqmkah ala 50-200-25 mg (Biktarvy) 1 tab PO BEDTIME blood sugar diagnostic (FreeStyle Lite Strips) As directed calcium carbonate-vitamin D3 500 mg-10 mcg (400 unit) (Oyster Shell Calcium- Vitamin D3) 1 tab PO QAM docusate sodium 100 mg PO BEDTIME PRN empagliflozin (Jardiance) 25 mg PO QAM esomeprazole magnesium (Nexium) 40 mg PO DAILY famotidine (Pepcid) 20 mg PO BEDTIME fluticasone propionate 50 mcg/actuation 1 - 2 sprays intranasal DAILY PRN ketotifen fumarate 0.025%(0.035%) (Eye Itch Relief) 1 drp ophthalmic (eye) BID lancets (TRUEplus Lancets) As directed lisinopril 5 mg PO QAM loratadine-pseudoephedrine 5-120 mg ER (Loratadine-D) 1 tab PO BID vtzmiptm-zac-BE-lycopen-lutein 0.4 mg-300 mcg- 250 mcg (Cerovite Senior) 1 tab PO QAM polyethylene glycol 3350 (Miralax) 17 grams PO DAILY sitagliptin phosphate (Januvia) 50 mg PO QAM vitamin B complex-folic acid 0.4 mg 1 tab PO QAM HPI HPI Hx of AIN, needs to establish care and for EUA: Details: 63-year-old female with history of HIV, referred to me because of previous AIN. She seems to have been followed in [facility] for this. Her last anoscopy was in November, and this was apparently unremarkable. She was supposed to be undergoing anoscopy every 6 months. She denies any significant rectal complaints at this time. She says her viral count is undetectable. [facility] Medical History (Updated 10/11/23 @ 09:57 by Misbah Sexton MD) AIN grade I Polyposis of colon Tubular adenoma of colon HIV (human immunodeficiency virus infection) Rectal lesion Internal derangement of right shoulder Surgical History History of esophagogastroduodenoscopy (EGD) Hx of colonoscopy Social History Household Members: Children Alcohol intake: never Patient Tobacco Use Status: Never used Tobacco Review of Systems Const Denies chills and Denies fever(s) Card Denies chest pain, Denies dyspnea and Denies dyspnea on exertion Resp Denies cough, Denies dyspnea and Denies dyspnea on exertion GI Denies hematochezia and Denies change in bowel habits Denies hematuria Musc Denies back pain and Denies limited range of motion Neuro Denies focal weakness and Denies convulsions Psych Denies depression and Denies mood swings Physical Exam Vital Signs: Last Vital Signs Pulse 68 10/11/23 09:24 BP 161/71 H 10/11/23 09:24 BMI result Body Mass Index 24.3 Const General: comfortable and no acute distress Orientation/consciousness: patient oriented x3 Neck Neck: Yes no lymphadenopathy Resp Auscultation: clear to auscultation bilaterally Cardio Rhythm: regular rhythm GI Other: Rectal exam shows external hemorrhoids, no perianal lesions or any abnormality in the perianal skin Palpation (GI): Soft to palpation, nontender and no guarding Neuro General: patient oriented x3 Office Procedures Anoscopy She was in blade-knife position. The anoscope was gently inserted. A full examination of the anal canal was done. There were no abnormality in the anal mucosa or the anoderm. There were no lesions. There was no fissure or any ulceration. There was no induration on digital exam. There was no bleeding. [id number] Assessment & Plan Assessment & Plan (1) AIN grade I: Code(s): K62.82 - Dysplasia of anus Category: Medical Plan: She apparently had a history of AIN 1 and used to be seen in [facility] every 6 months. She lives in the area now. Current rectal exam and anoscopy does not reveal any suggestion of any lesion or any abnormality in the lining of the anus. I will see her in about 6 months again to repeat the anoscopy as part of her surveillance. She understands the plan well. Coding Level of Care Code New Pt Level 3 (43710) Diagnoses AIN grade I K62.82 CPT Codes Details - CPT: [id number] ([id number])
[2023-10-11 09:24] VITALS: BP 161/71; PULSE 68; BMI 24.3
== END 2023-10-11 10:01 | disposition home or self-care (01) ==
PROVIDERS: PCP Physician Assistant; Referring Provider Nurse Practitioner Family; Visit Provider Surgery
DX: K62.82 Dysplasia of anus (principal)
CPT/HCPCS: 46600; 99203

== ENCOUNTER → 2023-10-11 09:17 | Outpatient (BNVA) | payer OTHER, SELFPAY | PROVIDERS: PCP Physician Assistant; Referring Provider Nurse Practitioner Family; Visit Provider Surgery | DX: K62.82 Dysplasia of anus (principal) | CPT/HCPCS: 46600; 99202 ==

== ENCOUNTER 2023-11-21 09:25 | Outpatient (AMB) | payer OTHER, SELFPAY ==
--- NOTE | 2023-11-21 09:27 | MHC.OFFVIS ---
Vital Signs 11/21/23 09:29 Height 5 ft 2 in Weight 134 lb 7.712 oz BMI 24.6 BP 159/70 H Blood Pressure Location Lt brachial Position Sitting Pulse 73 Intake Visit Reasons: 3 month follow up Intake Note: Anai presents in the office as a 3 month follow up. CC: She states that she is not really having any concerns at this time. 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 Avoid dietary triggers and late night snacking. Staying upright for minimum 3 hours after meals discussed with patient. Genetic testing discussed with patient. Results were negative no clinically significant mutation identified. Patient will start taking MiraLax daily. Increase fluid intake and activity to promote better bowel motility. Avoid straining may also take stool softeners. May use Proctosol as needed, Sitz baths with Epsom salts. Patient will follow-up in, sooner on as needed basis. She is agreeable to this plan and verbalizes understanding of instructions. She was given the opportunity to ask questions and all questions answered. ? Thank you for allowing me to participate in her care Medications New polyethylene glycol 3350 (Miralax) 17 grams PO DAILY 510 grams 2RF TODAY'S VISIT Patient is here today for follow-up. Patient reports that she has been doing fairly well since last visit. Patient states that she takes Nexium every morning and only uses famotidine on as needed basis. Patient reports that she is avoiding certain dietary triggers. Doing well. Occasional postprandial abdominal bloating. Moving her bowels better uses MiraLax on as needed basis. Patient denies melena, hematochezia, unintentional weight loss or ribbon like stools. Denies any dyspepsia, dysphagia or odynophagia. Patient reports occasional muscle cramps in her legs. She will talk to her PCP about her symptoms. Patient is following up with Dr. Sexton now as part of surveillance for AIN. No lesions detected last anoscopy. [facility] Medical History AIN grade I Polyposis of colon Tubular adenoma of colon HIV (human immunodeficiency virus infection) Rectal lesion Internal derangement of right shoulder Surgical History History of esophagogastroduodenoscopy (EGD) Hx of colonoscopy Social History Household Members: Children Alcohol intake: never Patient Tobacco Use Status: Never used Tobacco Review of Systems Const Denies weight gain and Denies weight loss ENT Reports no additional complaints, Denies dysphagia and Denies odynophagia Card Reports no additional complaints Resp Reports no additional complaints GI Denies abdominal pain, Denies belching, Denies melena, Reports bloating (Occasional), Denies hematochezia, Reports constipation (improved), Denies dysphagia, Denies excessive flatus, Denies dyspepsia, Denies heartburn, Denies diarrhea, Denies loose stools, Denies nausea, Denies odynophagia and Denies vomiting Musc Reports no additional complaints Neuro Reports no additional complaints Psych Reports no additional complaints Endo Reports no additional complaints Physical Exam Vital Signs: Last Vital Signs Pulse 73 11/21/23 09:29 BP 159/70 H 11/21/23 09:29 BMI result Body Mass Index 24.6 Const General: healthy appearing, no acute distress and well developed Nutritional Appearance: well nourished Orientation/consciousness: patient oriented x3 Resp Effort & Inspection: normal respiratory effort, able to speak in complete sentences, no tracheal deviation and symmetric chest movement Auscultation: clear to auscultation bilaterally Cardio Rate: regular rate GI Inspection: Yes normal to inspection and No distended Palpation (GI): Soft to palpation, not firm, nontender and No hepatosplenomegaly present Auscultation: normal bowel sounds General: Yes no CVA tenderness Back/Spine/Pelvis Back: no CVA tenderness Skin General skin exam: elasticity normal, turgor normal and dry skin Neuro General: patient oriented x3 Psych Appearance: grossly normal Mental Status: mental status grossly normal Assessment & Plan Assessment & Plan (1) Rectal lesion: Code(s): K62.9 - Disease of anus and rectum, unspecified Category: Medical (2) Tubular adenoma of colon: Code(s): D12.6 - Benign neoplasm of colon, unspecified Category: Medical (3) Polyposis of colon: Code(s): K63.5 - Polyp of colon Category: Medical (4) Postprandial abdominal bloating: Code(s): R14.0 - Abdominal distension (gaseous) (5) Postprandial epigastric pain: Code(s): R10.13 - Epigastric pain (6) GERD (gastroesophageal reflux disease): Code(s): K21.9 - Gastro-esophageal reflux disease without esophagitis Qualifiers: Esophagitis presence: esophagitis presence not specified Qualified Code(s): K21.9 - Gastro-esophageal reflux disease without esophagitis Plan Continue Nexium daily. May use famotidine on as needed basis. Avoid dietary triggers and late night snacking. Staying upright for minimum 3 hours after meals discussed with patient. Continue MiraLax on as needed basis. Patient may take magnesium to help with muscle pain. Patient will be due to go for colonoscopy again in June of 2024. Patient will follow-up in 4 months, sooner on as needed basis. She is agreeable to this plan and verbalizes understanding of instructions she was given the opportunity to ask questions and all questions answered. Thank you for allowing me to participate in her care Medications: New magnesium oxide 400 mg PO BEDTIME 90 tabs 2RF Refilled esomeprazole magnesium (Nexium) 40 mg PO DAILY 90 caps 5RF K21.9 - Gastro-esophageal reflux disease without esophagitis Coding Level of Care Code Est Pt Level 3 (94640) Diagnoses Rectal lesion K62.9 Tubular adenoma of colon D12.6 Polyposis of colon K63.5 Postprandial abdominal bloating R14.0 Postprandial epigastric pain R10.13 Gastroesophageal reflux disease, unspecified whether esophagitis present K21.9 Esophagitis presence: esophagitis presence not specified Time Spent (min) 30 Comment 20 minutes spent with patient and additional 10 minutes spent reviewing her records
[2023-11-21 09:29] VITALS: BP 159/70; PULSE 73; BMI 24.6
== END 2023-11-21 09:49 | disposition home or self-care (01) ==
PROVIDERS: PCP Physician Assistant; Visit Provider Nurse Practitioner Family
DX: K62.9 Disease of anus and rectum, unspecified (principal); D12.6 Benign neoplasm of colon, unspecified; K63.5 Polyp of colon; R14.0 Abdominal distension (gaseous); R10.13 Epigastric pain; K21.9 Gastro-esophageal reflux disease without esophagitis
CPT/HCPCS: 99213

== ENCOUNTER → 2023-11-21 09:25 | Outpatient (BNVA) | payer OTHER, SELFPAY | PROVIDERS: PCP Physician Assistant; Visit Provider Nurse Practitioner Family | DX: K21.9 Gastro-esophageal reflux disease without esophagitis (principal); K63.5 Polyp of colon; K62.9 Disease of anus and rectum, unspecified; D12.6 Benign neoplasm of colon, unspecified; R10.13 Epigastric pain; R14.0 Abdominal distension (gaseous) | CPT/HCPCS: 99212 ==

== ENCOUNTER 2023-12-01 08:28 | Outpatient (REF) | payer OTHER, SELFPAY ==
[2023-12-01 11:08] LABS: MANUAL DIFF FLAG NO
[2023-12-01 11:21] LABS: Basophils Absolute Auto 0.1 X10*3/uL (0.0-0.2); Basophils Percent Auto 0.8 % (0-2); Eosinophils Absolute Auto 0.1 X10*3/uL (0.0-0.4); Eosinophils Percent Auto 1.8 % (0-4); Hematocrit 38.4 % (37.0-47.0); Hemoglobin 12.5 g/dl (12.0-16.0); Imm Gran Abs Auto 0.01 X10*3/uL (0.00-0.03); Imm Gran Pct Auto 0.2 % (0.0-0.4); Lymphocytes Percent Auto 45.3 % (20-40); Mean Corpuscular HGB Conc 32.6 g/dl (31.0-35.0); Mean Corpuscular Hemoglobin 30.3 pg (27.0-33.0); Mean Corpuscular Volume 93.2 fL (80.0-98.0); Mean Platelet Volume 11.4 fL (9.4-12.3); Monocytes Absolute Auto 0.4 X10*3/uL (0.1-1.2); Monocytes Percent Auto 5.7 % (2-11); Neutrophils Absolute Auto 3.1 x10*3/uL (2.0-8.3); Neutrophils Percent Auto 46.2 % (45-73); Platelet Count 266 X10*3/uL (160-400); Red Blood Count 4.12 X10*6/uL (4.20-5.50); Red Cell Distribution Width 15.9 % (11.0-16.0); White Blood Count 6.7 X10*3/uL (4.8-10.8)
[2023-12-01 11:49] LABS: Alanine Aminotransferase 22 U/L (0-31); Albumin Level 3.9 g/dL (3.5-5.0); Alkaline Phosphatase 66 U/L (39-117); Anion Gap 8 (12-20); Aspartate Amino Transferase 22 U/L (5-31); Bilirubin Total 0.7 mg/dL (0.0-1.0); Blood Urea Nitrogen 24 mg/dL (9-16); Calcium 9.2 mg/dL (8.4-10.2); Carbon Dioxide 29 mmol/L (22-29); Chloride 106 mmol/L (96-108); Estimated Glomerular Filt Rate 49; Glucose Random 126 mg/dL (60-115); Potassium 4.3 mmol/L (3.3-5.1); Sodium 139 mmol/L (135-145); Total Protein 7.2 g/dL (6.5-8.0)
[2023-12-04 16:48] LABS: HIV RNA PCR Qn Copies <20 DETECTED copies/mL (NOT DETECTED); HIV RNA PCR Qn Log Copies <1.30 DETECTED (NOT DETECTED)
[2023-12-06 15:38] LABS: Absolute CD3 Count 2187 cells/uL (840-3060); Absolute CD4 Count 1106 cells/uL (490-1740); Absolute CD8 Count 1096 cells/uL (180-1170); Absolute Lymphocytes 3319 cells/uL (850-3900); CD4 CD8 Ratio 1.01 (0.86-5.00); Percent CD3 Cells 66 % (57-85); Percent CD4 Cells 33 % (30-61); Percent CD8 Cells 33 % (12-42)
== END 2023-12-01 08:29 | disposition home or self-care (01) ==
LOC: HO.HHCL 08:28
PROVIDERS: Visit Provider Internal Medicine
DX: B20 Human immunodeficiency virus [HIV] disease (principal)
CPT/HCPCS: 36415; 80053; 85025; 86359; 86360; 87536

== ENCOUNTER 2024-02-01 09:35 | Outpatient (AMB) | payer OTHER, SELFPAY ==
[2024-02-01 09:42] VITALS: BMI 24.5
--- NOTE | 2024-02-01 09:42 | MHC.OFFVIS ---
Vital Signs 02/01/24 09:42 Height 5 ft 2 in Weight 134 lb BMI 24.5 Intake Visit Reasons: New prob. Left shoulder pain Intake Note: Anai is a 63 year old right hand dominant female who presents today for a new problem visit with complaints of left shoulder pain. Patient reports that she has had ongoing pain for about 1 month now. Pain increases with ROM particularly with above the head and behind the back. Her pain is a sharp pain that is felt all the way to the center of her back. She took Ibuprofen, baclofen and naproxen all of which were not helpful and caused other side effects for her. Allergies metformin Adverse Reaction (Mild, Verified 02/01/24 09:45) foot swelling lactose Adverse Reaction (Verified 02/01/24 09:45) Intolerance HPI HPI New prob. Left shoulder pain: Details: Anai is a 63 year old right hand dominant female who presents today for a new problem visit with complaints of left shoulder pain. Patient reports that she has had ongoing pain for about 1 month now. Pain increases with ROM particularly with above the head and behind the back. Her pain is a sharp pain that is felt all the way to the center of her back. She took Ibuprofen, baclofen and naproxen all of which were not helpful and caused other side effects for her. [facility] Medical History AIN grade I Polyposis of colon Tubular adenoma of colon HIV (human immunodeficiency virus infection) Rectal lesion Internal derangement of right shoulder Surgical History History of esophagogastroduodenoscopy (EGD) Hx of colonoscopy Social History Household Members: Children Alcohol intake: never Patient Tobacco Use Status: Never used Tobacco Physical Exam Vital Signs: BMI result Body Mass Index 24.5 Extrem Other: Left shoulder with positive Olsen and Neer. Negative empty can. External rotation to 45 degrees Assessment & Plan Assessment & Plan (1) Painful arc syndrome of left shoulder: Code(s): M75.102 - Unspecified rotator cuff tear or rupture of left shoulder, not specified as traumatic Category: Medical Plan: Painful arc syndrome left shoulder. Physical therapy worked for the other shoulder and she would like a prescription for or therapy [place]. Piter was written for her left shoulder. Follow up p.r.n.. Orders: Orders PT Evaluation and Treatment Today M75.102 - Unspecified rotator cuff tear or rupture of left shoulder, not specified as traumatic Coding Level of Care Code Est Pt Level 3 (66886) Diagnoses Painful arc syndrome of left shoulder M75.102
== END 2024-02-01 10:00 | disposition home or self-care (01) ==
LOC: HO.HOS 09:35
PROVIDERS: PCP Physician Assistant; Visit Provider Orthopaedic Surgery
DX: M75.102 Unspecified rotator cuff tear or rupture of left shoulder, not specified as traumatic (principal)
CPT/HCPCS: 99213

== ENCOUNTER → 2024-02-01 09:35 | Outpatient (BNVA) | payer OTHER, SELFPAY | PROVIDERS: PCP Physician Assistant; Visit Provider Orthopaedic Surgery | DX: M75.102 Unspecified rotator cuff tear or rupture of left shoulder, not specified as traumatic (principal) | CPT/HCPCS: 99212 ==

== ENCOUNTER 2024-03-22 16:05 | Outpatient (REF) | payer OTHER, SELFPAY ==
[2024-03-23 12:37] LABS: Adenovirus PCR Not Detected (Not Detect.); Bordetella parapertussis PCR Not Detected (Not Detect.); Bordetella pertussis PCR Not Detected (Not Detect.); Chlamydia pneumoniae PCR Not Detected (Not Detect.); Coronavirus 229E PCR Not Detected (Not Detect.); Coronavirus HKU1 PCR Not Detected (Not Detect.); Coronavirus NL63 PCR Not Detected (Not Detect.); Coronavirus OC43 PCR Not Detected (Not Detect.); Human metapneumovirus PCR Not Detected (Not Detect.); Influenza A PCR Not Detected (Not Detect.); Influenza B PCR Not Detected (Not Detect.); Mycoplasma pneumoniae PCR Not Detected (Not Detect.); Parainfluenza 1 PCR Not Detected (Not Detect.); Parainfluenza 2 PCR Not Detected (Not Detect.); Parainfluenza 3 PCR Not Detected (Not Detect.); Parainfluenza 4 PCR Not Detected (Not Detect.); RSV PCR Detected (Not Detect.); Rhino/Enterovirus PCR Not Detected (Not Detect.)
[2024-03-23 12:47] LABS: SARS-CoV-2 PCR Not Detected (Not Detect.)
== END 2024-03-22 16:06 | disposition home or self-care (01) ==
LOC: HO.CHCLNP 16:05
PROVIDERS: Visit Provider Registered Nurse
DX: R05.8 Other specified cough (principal)
CPT/HCPCS: 87633

== ENCOUNTER 2024-04-04 | Outpatient (REF) | payer OTHER, SELFPAY ==
[2024-04-05 10:50] LABS: HPV 16,18/45 See PAP report
== END 2024-04-04 00:01 | disposition home or self-care (01) ==
LOC: HO.HHCLNP
PROVIDERS: PCP Physician Assistant; Visit Provider Advanced Practice Midwife
DX: Z12.4 Encounter for screening for malignant neoplasm of cervix (principal); Z11.51 Encounter for screening for human papillomavirus (HPV)
CPT/HCPCS: 87626; 88175

== ENCOUNTER 2024-04-04 09:25 | Outpatient (AMB) | payer OTHER, SELFPAY ==
--- NOTE | 2024-04-04 09:30 | MHC.OFFVIS ---
Vital Signs 04/04/24 09:31 Height 5 ft 2 in Weight 138 lb 6 oz BMI 25.3 Intake Visit Reasons: 6 Month Follow up Intake Note: This patient presents for six month follow-up for AIN grade I, dysplasia of anus. Pt c/o; reports no complaints at this time. Learning Technologist Required: No Accompanied by: Self / Same As Patient Allergies metformin Adverse Reaction (Mild, Verified 04/04/24 09:40) foot swelling lactose Adverse Reaction (Verified 04/04/24 09:40) Intolerance HPI HPI 6 Month Follow up: Details: 63-year-old female with history of HIV, referred to me because of previous AIN. She had been diagnosed to have HIV for about 19 years. She was being followed in [facility] before. She was supposed to be undergoing anoscopy every 6 months. She denies any significant anal complaints at this time. She says her viral count is undetectable. She does admit to having periodic constipation and has some anal discomfort with hard stools whenever this happens. [facility] Medical History AIN grade I Polyposis of colon Tubular adenoma of colon HIV (human immunodeficiency virus infection) Rectal lesion Internal derangement of right shoulder Surgical History History of esophagogastroduodenoscopy (EGD) Hx of colonoscopy Social History Household Members: Children Alcohol intake: never Patient Tobacco Use Status: Never used Tobacco Review of Systems Const Denies chills and Denies fever(s) Card Denies chest pain, Denies dyspnea and Denies dyspnea on exertion Resp Denies cough, Denies dyspnea and Denies dyspnea on exertion GI Denies hematochezia and Denies change in bowel habits Denies hematuria Musc Denies back pain and Denies limited range of motion Neuro Denies focal weakness and Denies convulsions Psych Denies depression and Denies mood swings Physical Exam Vital Signs: BMI result Body Mass Index 25.3 Const General: comfortable and no acute distress Orientation/consciousness: patient oriented x3 Neck Neck: Yes no lymphadenopathy Resp Auscultation: clear to auscultation bilaterally Cardio Rhythm: regular rhythm GI Other: Rectal exam shows external hemorrhoids on both the left and right side, no obvious lesions Palpation (GI): Soft to palpation, nontender and no guarding Neuro General: patient oriented x3 Office Procedures Anoscopy She was in blade-knife position. The anoscope was gently inserted. A full examination of the anal canal was done. She did have external and internal hemorrhoidal columns on both the left and right side. There were no lesions seen. There was no abnormal looking mucosa or anoderm. There was no ulcer or fissure. There was no induration digital exam. 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 Her viral count is undetectable she says She does admit to having a periodic constipation. I will send her a prescription for Metamucil I will see her in the office again in about 6 months for repeat anoscopy. She is comfortable with the plan. Coding Level of Care Code Est Pt Level 3 (13324) Diagnoses AIN grade I K62.82 CPT Codes Details - CPT: 72721-Hawjiicv ([id number])
[2024-04-04 09:31] VITALS: BMI 25.3
== END 2024-04-04 09:53 | disposition home or self-care (01) ==
PROVIDERS: PCP Physician Assistant; Visit Provider Surgery
DX: K62.82 Dysplasia of anus (principal)
CPT/HCPCS: 46600; 99213

== ENCOUNTER → 2024-04-04 09:25 | Outpatient (BNVA) | payer OTHER, SELFPAY | PROVIDERS: PCP Physician Assistant; Visit Provider Surgery | DX: K62.82 Dysplasia of anus (principal) | CPT/HCPCS: 46600; 99212 ==

== ENCOUNTER → 2024-04-17 08:10 | Outpatient (BNVA) | payer OTHER, SELFPAY | PROVIDERS: PCP Physician Assistant; Visit Provider Nurse Practitioner Family | DX: K21.9 Gastro-esophageal reflux disease without esophagitis (principal); K62.9 Disease of anus and rectum, unspecified; K63.5 Polyp of colon; D12.6 Benign neoplasm of colon, unspecified; R14.0 Abdominal distension (gaseous); R10.13 Epigastric pain | CPT/HCPCS: 99212 ==

== ENCOUNTER 2024-04-19 10:00 | Outpatient (RCR) | payer OTHER, SELFPAY ==
--- NOTE | 2024-03-12 10:46 | MHC.PT.EP ---
[facility] [place] Office [place] Office [place] Office [address] [place] Te[place] [address] [phone] F: [phone] F: [phone] F: [phone] F: [phone] Physical Therapy Plan of Care Date of Evaluation: 03/12/24 Date of Surgery: Diagnosis: painful arc syndrome of R shoulder. Assessment: Patient is a 63 year old R handed female who presents with s/s consistent with painful arc syndrome of L shoulder, L shoulder pain. She works with daily job demands including [employer] service. Patient past medical history includes HIV. Current impairments include pain, posture, ROM, strength, activity tolerance and functional mobility. Functional limitations include decreased ability to sleep, reach, lift, carry, drive, push and pull. Patient is motivated with good rehab potential. Skilled PT will address impairments and functional limitations in order to achieve goals. Frequency and Duration: The patient will be seen 2x/week for 5 weeks Short Term Goals: I with HEP - 2 weeks AROM flexion 120, ER 40, abduction 110 - [address] pain free - 3 weeks Snf Goals: Full pain free AROM - 5 weeks Strength 4+/5 - 5 weeks SPADI 30/130 or better -5 weeks Able to sleep pain free - 5 weeks Max pain with work/daily routine /10 - 5 weeks Treatment Plan: Modalities to reduce pain, spasms and effusion. Manual therapy to restore motion and function. Therapeutic exercise to improve strength and flexibility. Neuromuscular re-education for posture and balance. Therapeutic activities to return to functional activities of daily living. Electronically signed by: Samson Beltrán, PT Please sign and return to therapist. Thank you for your referral.
--- NOTE | 2024-06-26 10:53 | MHC.PT.DC ---
[facility] [place] Office [place] Office [place] Office [address] [place] Te[place] [address] [phone] F: [phone] F: [phone] F: [phone] F: [phone] Physical Therapy Discharge Report Diagnosis: painful arc syndrome of R shoulder. Date of Surgery: Date of Evaluation: 03/12/24 Date of Discharge: 04/27/24 Treatments to Date: 5 Cancellations to Date: No Shows to Date: Discharge Status: Independent with HEP Patient Elected to Stop Discharge Summary: 04/19/24: pt progressing well with ER PROM: 52 degrees today. Continue to progress as tolerated. Encouraged pt to continue to pursue ROM gains via HEP. 04/17; Pt exs at home. Pt conts with limitation with mobility. Pt felt looser after manul Rx. 04/10; Pt sh ext rot supine after stretching 40 degrees. 04/04/24: progressed with strength and ROM. poor HEP compliance. continue to progress as tolerated. Patient is a 63 year old R handed female who presents with s/s consistent with painful arc syndrome of L shoulder, L shoulder pain. She works with daily job demands including [employer] service. Patient past medical history includes HIV. Current impairments include pain, posture, ROM, strength, activity tolerance and functional mobility. Functional limitations include decreased ability to sleep, reach, lift, carry, drive, push and pull. Patient is motivated with good rehab potential. Skilled PT will address impairments and functional limitations in order to achieve goals. Electronically signed by: Samson Beltrán, PT Please sign and return to therapist. Thank you for your referral.
== END 2024-06-26 10:53 | disposition home or self-care (01) ==
LOC: HO.PTCHIC 10:00
PROVIDERS: PCP Physician Assistant; Visit Provider Orthopaedic Surgery
DX: M75.102 Unspecified rotator cuff tear or rupture of left shoulder, not specified as traumatic (principal)
CPT/HCPCS: 87626; 88175; 97110; 97140; 97162

== ENCOUNTER 2024-05-29 08:07 | Outpatient (REF) | payer OTHER, SELFPAY | END 2024-05-29 08:08 | disposition home or self-care (01) | LOC: HO.MAMMO 08:07 | PROVIDERS: PCP Registered Nurse; Visit Provider Registered Nurse | DX: Z12.31 Encounter for screening mammogram for malignant neoplasm of breast (principal) | CPT/HCPCS: 77063; 77067 ==

== ENCOUNTER → 2024-05-29 08:15 | Outpatient (BNV) | payer OTHER, SELFPAY | PROVIDERS: PCP Registered Nurse; Visit Provider Internal Medicine | DX: Z12.31 Encounter for screening mammogram for malignant neoplasm of breast (principal) | CPT/HCPCS: 77063; 77067 ==

== ENCOUNTER 2024-06-18 05:59 | Day surgery (SDC) | payer OTHER, SELFPAY ==
[2024-06-14 11:50] VITALS: BMI 25.1
[2024-06-18 07:18] VITALS: BP 183/91; PULSE 88; RESP 20; TEMP 36.9; O2SAT 97; BMI 26.3
[2024-06-18 07:27] LABS: Glucose, Whole Blood 123 mg/dL (60-115)
--- NOTE | 2024-06-18 07:46 | MHC.SHP ---
Pre-Procedural Eval Section A - 24 Hr Update-Section A only Date of Service: 06/18/24 Section B - Complete if H&P > 30 days Chief Complaint: Hx of polyps Details of Present Illness: PMH: Anal lesion Internal derangement of right shoulder Surgical History Hx of colonoscopy Present Medications: see Short Stay Collaborative assessment Allergies: Allergies Allergy/AdvReac Type Severity Reaction Status Date / Time metformin AdvReac Mild foot Verified 04/17/24 08:19 swelling lactose AdvReac Intolerance Verified 04/17/24 08:19 Review of Systems Review of Systems Comment: Ten point ROS negative Exam Exam Comment: Gen appear: No acute distress HEENT: no icterus Chest: No overt resp distress Abd: soft, nontender, nondistended Psych: Stable affect, answering questions appropriately Neuro: A/Ox3 noted to move all extremities spontaneously Ext: no peripheral edema Plan Diagnosis/Plan: Unchanged I have reviewed the history and physical and performed a pertinent physical examination on my patient. No changes have occurred unless specified. Time Spent With Patient Time: Total time managing care of this patient today ____ minutes.
--- NOTE | 2024-06-18 08:35 | HO.ANESPROP2 ---
HPI - Anesthesia Eval Consult details Narrative: 64 yo female patient for Colonoscopy Anesthesia Pre-Procedure Meds Is the patient on any of the following meds?: GLP1/DPP4 (Last dose of Sitagliptin 06/14/24) and SGLT2 Inhib (Last dose of Empagliflozin 06/14/24) If yes to any meds - educate patient: Pt education - increased risk of aspiration and/or euvolemic DKA PMFSH Active Problems Active Problems: All Active Problems Painful arc syndrome of left shoulder (Acute) Adhesive capsulitis of right shoulder (Acute) Dupuytren's contracture of right hand (Acute) Right shoulder pain (Acute) AIN grade I (Acute) Polyposis of colon (Acute) Tubular adenoma of colon (Acute) Rectal lesion (Acute) Internal derangement of right shoulder (Acute) Past Medical History Medical History Type 2 diabetes mellitus AIN grade I Polyposis of colon Tubular adenoma of colon HIV (human immunodeficiency virus infection) Rectal lesion Internal derangement of right shoulder Family History Family history of problems with anesthesia: No Surgical History Surgical History H/O: hysterectomy History of esophagogastroduodenoscopy (EGD) Hx of colonoscopy History of Problems with Anesthesia: No Social History Social History Household Members: Children Alcohol intake: never Patient Tobacco Use Status: Never used Tobacco Have you been hit, kicked, punched, or otherwise hurt by someone within the past year? If so, by whom?: No Are you DNR?: No Advance Directives: No Advance Directives Information Provided: Yes Nutrition Risks: No Nutritional Risk Meds Allergies Allergy/AdvReac Type Severity Reaction Status Date / Time metformin AdvReac Mild foot Verified 04/17/24 08:19 swelling lactose AdvReac Intolerance Verified 04/17/24 08:19 Home Medications ?Medication ?Instructions ?Recorded ?Confirmed ?Last Taken ?Type aspirin 81 mg chewable tablet 1 tab PO BEDTIME 02/28/23 06/14/24 06/14/24 History atorvastatin 20 mg tablet 20 mg PO QPM 02/28/23 06/14/24 Unknown History azelastine 137 mcg (0.1 %) nasal 1 spray intranasal BID 02/28/23 10/11/23 Unknown History spray bictegravir 50 mg-emtricitabine 1 tab PO BEDTIME 02/28/23 06/14/24 Unknown History 200 mg-tenofovir alafenam 25 mg tablet (Biktarvy) blood sugar diagnostic (FreeStyle #10 ea 02/28/23 10/11/23 Unknown History Lite Strips) calcium 500 mg (as 1 tab PO QAM 02/28/23 06/14/24 Unknown History carbonate)-vitamin D3 10 mcg (400 unit) tablet (Oyster Shell Calcium-Vitamin D3) docusate sodium 100 mg capsule 100 mg PO BEDTIME PRN constipation 02/28/23 06/14/24 Unknown History empagliflozin 25 mg tablet 25 mg PO QAM diabetes mellitus 02/28/23 06/14/24 06/14/24 History (Jardiance) ketotifen fumarate 0.025 % (0.035 1 drp ophthalmic (eye) BID 02/28/23 10/11/23 Unknown History %) eye drops (Eye Itch Relief) lancets 33 gauge (TRUEplus Lancets) #100 ea 02/28/23 10/11/23 Unknown History lisinopril 5 mg tablet 5 mg PO QAM blood pressure 02/28/23 06/14/24 Unknown History oqbkudgn-gvv-kgqcp acid 0.4 1 tab PO QAM 02/28/23 10/11/23 Unknown History mg-lycopene 300 mcg-lutein 250 mcg tablet (Cerovite Senior) sitagliptin phosphate 50 mg tablet 50 mg PO QAM diabetes mellitus 02/28/23 06/14/24 06/14/24 History (Januvia) vitamin B complex-folic acid 0.4 1 tab PO QAM 02/28/23 06/14/24 Unknown History mg tablet fluticasone propionate 50 1 - 2 spray intranasal DAILY PRN 04/11/23 06/14/24 Unknown History mcg/actuation nasal Nasal Congestion spray,suspension loratadine 10 mg tablet 10 mg PO QAM 04/17/24 06/14/24 Unknown History Exam Height,Weight and Vital Signs: Height 5 ft 2 in Weight 65.23 kg Last Vital Signs Temp 98.4 F 06/18/24 07:18 Pulse 88 06/18/24 07:18 Resp 20 06/18/24 07:18 BP 183/91 H 06/18/24 07:18 Pulse Ox 97 06/18/24 07:18 O2 Del Method Room Air 06/18/24 07:18 Pertinent Lab Results Pertinent Lab Results: Laboratory Tests 06/18/24 07:23 POC Glucose 123 H Airway Mallampati Class: II TM Dist: >3cm Neck ROM: Full Loose/Missing/Broken Teeth: Yes (Missing molars. 1 broken tooth bottom left back. Denies loose teeth) Heart: RRR Lungs: CTAB Assessment and Plan Assessment Anesthesia Assessment: Anesthesia Plan Discussed and Chart Reviewed Final Anesthetic Review Family History of Problems with Anesthesia: No History of Problems with Anesthesia: No NPO: Yes ASA Class: III Final Preanesthetic Review: No Changes in Pt Med Stat, Meds/Allgs Chart Reviewed, Consent Obtained/Reviewed and Anes Risks/Benef Reviewed Patient Risk: Intermediate Procedure Risk: Low Assessment/Block/Sedation in SS: Assess/Block/Sedation-SS Anesthetic Plan Anesthetic Plan: TIVA Disposition: Standard PACU
--- NOTE | 2024-06-18 09:36 | P.OPN-COLO_ITS ---
Colonoscopy Operative Note Operative Note Date of Service: 06/18/24 Narrative: Procedure: Colonoscopy Indication: Polyposis Endoscopist: Becca Vizcaino MD Anesthesia Provider: Dr Fariba Jessica Anesthesia type: MAC Instrument: Olympus [id number]-[id number] Consent: Indication, risks vs benefits, and alternatives were discussed with the patient who gave written informed consent to proceed. EKG, pulse, pulse oximetry and blood pressure were monitored throughout the procedure. Please see anesthesia flowsheet. Procedure: The patient was brought to the procedure room and placed in the left lateral decubitus position. IV medications were administered by the anesthesia provider in attendance. A digital rectal exam was performed which was abnormal due to finding of hemorrhoids. A distal attachment cap was affixed to the tip of the colonoscope which was then inserted through the anus and advanced through the colon to the cecum at 75 cm,and terminal ileum. Appendiceal orifice and ileocecal valve were identified. Mucosa was carefully examined under high definition white light as the instrument was slowly withdrawn in a retrograde panoramic fashion. Retroflexion was performed in rectum. The procedure was not difficult. There were no immediate obvious complications. The quality of the prep was BBPS: 2+3+3 = adequate Withdrawal time 29 minutes. Limitations: High polyp burden Findings: Mucosa: Normal to cecum and terminal ileum. Too numerous to count polyps noted throughout the right colon. Polyps 2 mm and larger were removed as below. Protruding lesions: * 14 sessile polyp of size 2-4 mm in cecum. Cold snare polypectomy was performed. The polyps were completely removed and retrieved. * 3 sessile polyp of size 3-4 mm in ascending colon. Cold snare polypectomy was performed. The polyps were completely removed and retrieved. * 30 sessile polyp of size 2-6 mm in transverse colon. Cold snare polypectomy was performed. The polyps were completely removed and retrieved. * Medium internal hemorrhoids without stigmata of recent bleeding. Excavated lesions: * Mild diverticulosis of left sided colon. Impression: 1. Normal colon and terminal ileum mucosa 2. Total of 47 polyps removed from right side of the colon 3. External and internal hemorrhoids 4. Diverticulosis Recommendations: - Follow path results - Repeat colonoscopy in 1 year - to be booked for extended time
[2024-06-18 09:42] VITALS: BP 158/76; PULSE 66; RESP 17; TEMP 36.4; O2SAT 100
[2024-06-18 09:57] VITALS: BP 180/81; PULSE 61; RESP 15; TEMP 36.4; O2SAT 100
== END 2024-06-18 10:30 | disposition home or self-care (01) ==
PROVIDERS: PCP Registered Nurse; Visit Provider Internal Medicine
PROC: 0DJD8ZZ Inspection of Lower Intestinal Tract, Via Natural or Artificial Opening Endoscopic (ICD-10-PCS; CPT 45378; principal; 2024-06-18 08:30)
DX: Z12.11 Encounter for screening for malignant neoplasm of colon (principal); Z86.0101 Personal history of adenomatous and serrated colon polyps; D12.0 Benign neoplasm of cecum; K51.40 Inflammatory polyps of colon without complications; K63.5 Polyp of colon; K57.30 Diverticulosis of large intestine without perforation or abscess without bleeding; K64.8 Other hemorrhoids; K64.4 Residual hemorrhoidal skin tags; R10.13 Epigastric pain; K21.9 Gastro-esophageal reflux disease without esophagitis; R14.0 Abdominal distension (gaseous); Z88.8 Allergy status to other drugs, medicaments and biological substances; E73.9 Lactose intolerance, unspecified; K62.82 Dysplasia of anus; K62.9 Disease of anus and rectum, unspecified; B20 Human immunodeficiency virus [HIV] disease; E11.9 Type 2 diabetes mellitus without complications; Z79.82 Long term (current) use of aspirin; Z79.84 Long term (current) use of oral hypoglycemic drugs; Z79.899 Other long term (current) drug therapy; Z90.710 Acquired absence of both cervix and uterus
CPT/HCPCS: 45385; 82947; 88305; J1920; J2003; J2704

== ENCOUNTER → 2024-06-18 05:59 | Outpatient (BNV) | payer OTHER, SELFPAY | PROVIDERS: PCP Registered Nurse; Visit Provider Internal Medicine | DX: Z12.11 Encounter for screening for malignant neoplasm of colon (principal); Z86.0102 Personal history of hyperplastic colon polyps; D12.3 Benign neoplasm of transverse colon; K57.30 Diverticulosis of large intestine without perforation or abscess without bleeding | CPT/HCPCS: 45385 ==

== ENCOUNTER 2024-06-19 11:48 | Outpatient (REF) | payer OTHER, SELFPAY ==
[2024-06-19 13:38] LABS: MANUAL DIFF FLAG NO
[2024-06-19 13:46] LABS: Basophils Absolute Auto 0.1 X10*3/uL (0.0-0.2); Basophils Percent Auto 0.6 % (0-2); Eosinophils Absolute Auto 0.1 X10*3/uL (0.0-0.4); Eosinophils Percent Auto 1.4 % (0-4); Hematocrit 39.1 % (37.0-47.0); Hemoglobin 12.8 g/dl (12.0-16.0); Imm Gran Abs Auto 0.05 X10*3/uL (0.00-0.03); Imm Gran Pct Auto 0.6 % (0.0-0.4); Lymphocytes Absolute Auto 3.5 X10*3/uL (1.2-4.9); Lymphocytes Percent Auto 38.5 % (20-40); Mean Corpuscular HGB Conc 32.7 g/dl (31.0-35.0); Mean Corpuscular Volume 94.7 fL (80.0-98.0); Mean Platelet Volume 10.9 fL (9.4-12.3); Monocytes Absolute Auto 0.5 X10*3/uL (0.1-1.2); Monocytes Percent Auto 5.3 % (2-11); Neutrophils Absolute Auto 4.8 x10*3/uL (2.0-8.3); Neutrophils Percent Auto 53.6 % (45-73); Platelet Count 242 X10*3/uL (160-400); Red Blood Count 4.13 X10*6/uL (4.20-5.50); Red Cell Distribution Width 14.5 % (11.0-16.0)
[2024-06-19 14:26] LABS: Alanine Aminotransferase 46 U/L (0-31); Albumin Level 4.1 g/dL (3.5-5.0); Alkaline Phosphatase 86 U/L (39-117); Anion Gap 12 (12-20); Aspartate Amino Transferase 28 U/L (5-31); Bilirubin Total 0.9 mg/dL (0.0-1.0); Blood Urea Nitrogen 15 mg/dL (9-16); Calcium 9.2 mg/dL (8.4-10.2); Carbon Dioxide 25 mmol/L (22-29); Chloride 107 mmol/L (96-108); Cholesterol 181 mg/dL (<200); Estimated Glomerular Filt Rate 54; Glucose Random 161 mg/dL (60-115); HDL Cholesterol 42 mg/dL (>40); LDL Cholesterol Calculated 93 mg/dL (<100); Potassium 3.9 mmol/L (3.3-5.1); Sodium 140 mmol/L (135-145); Total Protein 8.3 g/dL (6.5-8.0); Triglycerides 232 mg/dL (<150)
[2024-06-19 14:36] LABS: Reflex LDLD? No
[2024-06-20 08:07] LABS: Syphilis Screen Nonreactive (Nonreactive)
[2024-06-20 20:54] LABS: HIV RNA PCR Qn Copies 26 copies/mL (NOT DETECTED); HIV RNA PCR Qn Log Copies 1.41 (NOT DETECTED)
[2024-06-21 22:43] LABS: Mumps Virus IgG Antibody <9.00 AU/mL; Rubeola IgG (Measles) >300.00 AU/mL
[2024-06-22 00:23] LABS: TS Negative Control Passed; TS Panel A 0; TS Panel B 1; TS Positive Control Passed; TSpotTB Negative (Negative)
[2024-06-22 22:57] LABS: Absolute CD3 Count 2217 cells/uL (840-3060); Absolute CD4 Count 1112 cells/uL (490-1740); Absolute CD8 Count 1144 cells/uL (180-1170); Absolute Lymphocytes 3314 cells/uL (850-3900); CD4 CD8 Ratio 0.97 (0.86-5.00); Percent CD3 Cells 67 % (57-85); Percent CD4 Cells 34 % (30-61); Percent CD8 Cells 35 % (12-42)
== END 2024-06-19 11:49 | disposition home or self-care (01) ==
LOC: HO.HHCL 11:48
PROVIDERS: Visit Provider Internal Medicine
DX: Z21 Asymptomatic human immunodeficiency virus [HIV] infection status (principal); Z11.1 Encounter for screening for respiratory tuberculosis; Z01.84 Encounter for antibody response examination
CPT/HCPCS: 36415; 80053; 80061; 85025; 86359; 86360; 86481; 86735; 86762; 86765; 86780; 87536

== ENCOUNTER 2024-07-10 08:15 | Outpatient (AMB) | payer OTHER, SELFPAY ==
--- NOTE | 2024-07-10 08:15 | A.OFFVIS_ITS ---
Vital Signs 07/10/24 08:16 Height 5 ft 2 in Weight 136 lb BMI 24.9 BP 140/66 H Blood Pressure Location Rt brachial Position Sitting Pulse 74 Pulse Source Pulse Oximeter Pulse Oximetry (%) 100 Oxygen Delivery Method Room Air Intake Visit Reasons: s/p colo Intake Note: ESTABLISHED PATIENT for s/p colo w/ multiple polyps removed. Chief Complaint; C/O lack of appetite, nausea w/o vomiting, early satiety, and an increase in dependency on colace per pt. Pt states that she has noticed an increase in these sx since around the time of her procedure. No additional concerns at this time. Vp Integrity Required: No Accompanied by: Self / Same As Patient Allergies metformin Adverse Reaction (Mild, Verified 07/10/24 08:16) foot swelling lactose Adverse Reaction (Verified 07/10/24 08:16) Intolerance HPI HPI s/p colo: Details: LAST VISIT Rectal lesion Tubular adenoma of colon Polyposis of colon Postprandial abdominal bloating Postprandial epigastric pain GERD (gastroesophageal reflux disease) Plan Patient will book procedure. What to expect before during and after procedure discussed with patient. Stressed the importance of good bowel prep and clear liquid diet day before procedure. I will see patient after the procedure, sooner on as needed basis. Patient will call our office if she will have any GI concerning symptoms. She has is agreeable to this plan and verbalizes understanding of instructions. She was given the opportunity to ask questions and all questions answered. ? Thank you for allowing me to participate in her care Medications New bisacodyl (Dulcolax (bisacodyl)) take 4 tabs at noon the day before your colonoscopy 20 mg (4 x 5 mg) PO ONCE 4 tabs 0RF 1 day Z12.11 polyethylene glycol 3350 (Miralax) As directed by gastroenterology department at [facility] 238 grams PO ONCE 238 grams 0RF Z12.11 COLONOSCOPY Findings: Mucosa: Normal to cecum and terminal ileum. Too numerous to count polyps noted throughout the right colon. Polyps 2 mm and larger were removed as below. Protruding lesions: * 14 sessile polyp of size 2-4 mm in cecum. Cold snare polypectomy was performed. The polyps were completely removed and retrieved. * 3 sessile polyp of size 3-4 mm in ascending colon. Cold snare polypectomy was performed. The polyps were completely removed and retrieved. * 30 sessile polyp of size 2-6 mm in transverse colon. Cold snare polypectomy was performed. The polyps were completely removed and retrieved. * Medium internal hemorrhoids without stigmata of recent bleeding. Excavated lesions: * Mild diverticulosis of left sided colon. Impression: 1. Normal colon and terminal ileum mucosa 2. Total of 47 polyps removed from right side of the colon 3. External and internal hemorrhoids 4. Diverticulosis Recommendations: - Follow path results - Repeat colonoscopy in 1 year - to be booked for extended time PATHOLOGY RESULTS Diagnosis A. Colon, transverse, polypectomies: Inflammatory polyps. B. Cecum, polypectomies: - Tubular adenomata (2); negative for high-grade dysplasia or carcinoma. - Colonic mucosa with mild surface hyperplastic changes. C. Colon, ascending, polypectomies: Colonic mucosa with prominent lymphoid aggregates TODAY'S VISIT: Patient is here today for follow-up and to discuss colonoscopy results. Patient had 47 polyps removed from her colon. Thirty polyps that were removed from transverse colon were inflammatory polyps. 2 Tubular adenomas found in cecum. Patient denies any melena, hematochezia, unintentional weight loss or ribbon like stools. Patient however reports that since she had colonoscopy she is more constipated. Patient states that she was to take stool softener in order to have a bowel movement. Patient reports anxious about how many polyps she have, feeling little more nauseous and does not have much appetite since the procedure. Patient reports nausea without vomiting. Patient denies any actual weight loss. Patient denies melena, hematochezia. Patient denies any acid reflux. Currently is taking esomeprazole and famotidine. [facility] Medical History Type 2 diabetes mellitus AIN grade I Polyposis of colon Tubular adenoma of colon HIV (human immunodeficiency virus infection) Rectal lesion Internal derangement of right shoulder Surgical History H/O: hysterectomy History of esophagogastroduodenoscopy (EGD) Hx of colonoscopy Social History Household Members: Children Alcohol intake: never Comment: shoulder pain is chronic Patient Tobacco Use Status: Never used Tobacco Review of Systems Const Denies weight gain and Denies weight loss ENT Reports no additional complaints, Denies dysphagia and Denies odynophagia Card Reports no additional complaints Resp Reports no additional complaints GI Denies abdominal pain, Denies belching, Denies melena, Denies bloating, Denies change in bowel habits, Denies dysphagia, Denies excessive flatus, Denies dyspepsia, Denies heartburn, Denies diarrhea, Denies loose stools, Denies nausea, Denies odynophagia and Denies vomiting Musc Reports no additional complaints Neuro Reports no additional complaints Psych Reports no additional complaints Endo Reports no additional complaints Physical Exam Vital Signs: Last Vital Signs Pulse 74 07/10/24 08:16 BP 140/66 H 07/10/24 08:16 Pulse Ox 100 07/10/24 08:16 Oxygen Delivery Method Room Air 07/10/24 08:16 BMI result Body Mass Index 24.9 Const General: healthy appearing, no acute distress and well developed Nutritional Appearance: well nourished Orientation/consciousness: patient oriented x3 Resp Effort & Inspection: normal respiratory effort, able to speak in complete sentences, no tracheal deviation and symmetric chest movement Auscultation: clear to auscultation bilaterally Cardio Rate: regular rate GI Inspection: Yes normal to inspection and No distended Palpation (GI): Soft to palpation, not firm, nontender and No hepatosplenomegaly present Auscultation: normal bowel sounds General: Yes no CVA tenderness Back/Spine/Pelvis Back: no CVA tenderness Skin General skin exam: elasticity normal, turgor normal and dry skin Neuro General: patient oriented x3 Psych Appearance: grossly normal Mental Status: mental status grossly normal Assessment & Plan Assessment & Plan (1) Polyposis of colon: Code(s): K63.5 - Polyp of colon Category: Medical (2) Tubular adenoma of colon: Code(s): D12.6 - Benign neoplasm of colon, unspecified Category: Medical (3) Postprandial abdominal bloating: Code(s): R14.0 - Abdominal distension (gaseous) (4) Postprandial epigastric pain: Code(s): R10.13 - Epigastric pain (5) GERD (gastroesophageal reflux disease): Code(s): K21.9 - Gastro-esophageal reflux disease without esophagitis Qualifiers: Esophagitis presence: esophagitis presence not specified Qualified Code(s): K21.9 - Gastro-esophageal reflux disease without esophagitis (6) Nausea: Code(s): R11.0 - Nausea Plan Continue Nexium and famotidine. Avoid dietary triggers and late night snacking. Patient was encouraged to take stool softener every day. Increase fluid intake and activity to promote better bowel motility. Mild diverticulosis found. Polyps found in transverse colon were inflammatory type of polyps. Tubular adenoma 2 pieces found in cecum. Patient will have colonoscopy in 1 year. However she will return to the office in 3-4 months. Patient will call us if she will have any GI concerning symptoms. She is agreeable to this plan and verbalizes understanding of instructions. She was given the opportunity to ask questions and all questions answered. Thank you for allowing me to participate in her care Coding Level of Care Code Est Pt Level 4 (18899) Complex EM visit Add On G2211 Diagnoses Polyposis of colon K63.5 Tubular adenoma of colon D12.6 Postprandial abdominal bloating R14.0 Postprandial epigastric pain R10.13 Gastroesophageal reflux disease, unspecified whether esophagitis present K21.9 Esophagitis presence: esophagitis presence not specified Nausea R11.0 Time Spent (min) 35 Comment 25 minutes spent with patient and additional 10 minutes spent reviewing her records
[2024-07-10 08:16] VITALS: BP 140/66; PULSE 74; O2SAT 100; BMI 24.9
== END 2024-07-10 08:59 | disposition home or self-care (01) ==
PROVIDERS: PCP Registered Nurse; Visit Provider Nurse Practitioner Family
DX: K63.5 Polyp of colon (principal); D12.6 Benign neoplasm of colon, unspecified; R14.0 Abdominal distension (gaseous); R10.13 Epigastric pain; K21.9 Gastro-esophageal reflux disease without esophagitis; R11.0 Nausea
CPT/HCPCS: 99214; G2211

== ENCOUNTER → 2024-07-10 08:15 | Outpatient (BNVA) | payer OTHER, SELFPAY | PROVIDERS: PCP Registered Nurse; Visit Provider Nurse Practitioner Family | DX: K63.5 Polyp of colon (principal); K21.9 Gastro-esophageal reflux disease without esophagitis; D12.6 Benign neoplasm of colon, unspecified; R14.0 Abdominal distension (gaseous); R10.13 Epigastric pain; R11.0 Nausea | CPT/HCPCS: 99212 ==

== ENCOUNTER 2024-09-20 08:15 | Outpatient (REF) | payer OTHER, SELFPAY ==
[2024-09-20 15:00] LABS: Alanine Aminotransferase 30 U/L (0-31); Albumin Level 4.2 g/dL (3.5-5.0); Alkaline Phosphatase 75 U/L (39-117); Anion Gap 12 (12-20); Aspartate Amino Transferase 30 U/L (5-31); Bilirubin Total 0.5 mg/dL (0.0-1.0); Blood Urea Nitrogen 22 mg/dL (9-16); Calcium 9.2 mg/dL (8.4-10.2); Carbon Dioxide 28 mmol/L (22-29); Chloride 106 mmol/L (96-108); Cholesterol 174 mg/dL (<200); Estimated Glomerular Filt Rate 47; Glucose Random 142 mg/dL (60-115); HDL Cholesterol 42 mg/dL (>40); LDL Cholesterol Calculated 108 mg/dL (<100); Potassium 4.1 mmol/L (3.3-5.1); Sodium 142 mmol/L (135-145); Total Protein 7.3 g/dL (6.5-8.0); Triglycerides 123 mg/dL (<150)
[2024-09-20 15:45] LABS: Creatinine Urine 92.94 mg/dL; Microalbum/Creatinine Ratio Ur 6.4 ug/mg cr (<30)
== END 2024-09-20 08:16 | disposition home or self-care (01) ==
LOC: HO.CHCLDS 08:15
PROVIDERS: Visit Provider Registered Nurse
DX: E11.9 Type 2 diabetes mellitus without complications (principal)
CPT/HCPCS: 36415; 80053; 80061; 82043; 82570

== ENCOUNTER 2024-09-25 10:00 | Outpatient (RCR) | payer OTHER, SELFPAY ==
--- NOTE | 2024-07-01 10:01 | MHC.PT.EP ---
[facility] [place] Office [place] Office [place] Office [address] [place] Tej[place] [address] [phone] F: [phone] F: [phone] F: [phone] F: [phone] Physical Therapy Plan of Care Date of Evaluation: 07/01/24 Date of Surgery: Diagnosis: painful arc syndrome of left shoulder. Assessment: Patient is a 63 year old R handed female who presents with s/s consistent with painful arc syndrome of L shoulder, L shoulder pain. She works with daily job demands including [employer] service. Patient past medical history includes a history of R shoulder pain where she received PT, and HIV. Current impairments include pain, posture, ROM, strength, activity tolerance and functional mobility. Functional limitations include decreased ability to sleep, reach, lift, carry, drive, push and pull. Patient is motivated with good rehab potential. Skilled PT will address impairments and functional limitations in order to achieve goals. 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 Manual therapy to restore motion and function. Therapeutic exercise to improve strength and flexibility. Neuromuscular re-education for posture and balance. Therapeutic activities to return to functional activities of daily living. Electronically signed by: Samson Beltrán, PT Please sign and return to therapist. Thank you for your referral.
--- NOTE | 2024-10-11 09:33 | MHC.PT.DC ---
[facility] [place] Office [place] Office [place] Office [address] [phone] F: [phone] F: [phone] F: [phone] F: [phone] Physical Therapy Discharge Report Diagnosis: painful arc syndrome of left shoulder. Date of Surgery: Date of Evaluation: 07/01/24 Date of Discharge: Treatments to Date: 11 Cancellations to Date: No Shows to Date: Discharge Status: Independent with HEP Discharge Summary: 09/25/24: Pt is I with HEP. ER PROM still at 39. Flexion to 124. She has had modest progress and we discussed her plan to d/c to HEP and resume in the future during thawing phase. we will d/c to HEP at this time. 09/11/24: no improvement in ER. We will continue to monitor. Next visit 2 weeks. 08/30/24: pt ER PROM to 39. we will taper to 1x every other week at this time. 08/19/24: pt progress continues with be slow with ER. flexion and scaption have improved as has strength in available ROM. we did discuss likelihood of d/c then to resume PT once thawing phase is perceived. 08/01/24: pt continues with motivation and we have been continuing to push ROM to pain tolerance. 07/24/24: pt has been progressing slow with ROM. pain still limits progress. continue to progress as tolerated 07/18/24: pt progressing slowly with skilled PT. ER progress modest and limited by pain. Flexion improving, AAROM flexion to 134. 4/15; Pt ext rot and abd most restricted. Pt GH rythum decreased with inf glides. 07/11/24: ER stubborn to progress. we will continue working ROM and strength as tolerated. 07/08/24: pt progressing well with skilled PT. no adverse reactions. ER still very tight. PROM To 25. 07/05/24: Pt notes compliance with HEP. added scap and cuff strength. no adverse reactions. continue to progress as tolerated and update HEP NV. Electronically signed by: Samson Beltrán, PT Please sign and return to therapist. Thank you for your referral.
== END 2024-10-11 09:33 | disposition home or self-care (01) ==
LOC: HO.PTCHIC 10:00
PROVIDERS: PCP Registered Nurse; Visit Provider Orthopaedic Surgery
DX: M75.102 Unspecified rotator cuff tear or rupture of left shoulder, not specified as traumatic (principal)
CPT/HCPCS: 97110; 97140; 97162

== ENCOUNTER 2024-10-15 07:40 | Outpatient (AMB) | payer OTHER, SELFPAY ==
--- NOTE | 2024-10-15 07:44 | A.OFFVIS_ITS ---
Vital Signs 10/15/24 07:45 Height 5 ft 2 in Weight 140 lb BMI 25.6 BP 140/65 H Blood Pressure Location Lt brachial Position Sitting Pulse 61 Pulse Oximetry (%) 100 Oxygen Delivery Method Room Air Intake Visit Reasons: 3 mo f/u Gerd, Constipation Intake Note: Patient 3 month follow up for GERD and Constipation. Patient cc: GERD on and off, nauseas come and go, constipation on and off, denies any other GI issues. 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 Avoid dietary triggers and late night snacking. Patient was encouraged to take stool softener every day. Increase fluid intake and activity to promote better bowel motility. Mild diverticulosis found. Polyps found in transverse colon were inflammatory type of polyps. Tubular adenoma 2 pieces found in cecum. Patient will have colonoscopy in 1 year. However she will return to the office in 3-4 months. Patient will call us if she will have any GI concerning symptoms. She is agreeable to this plan and verbalizes understanding of instructions. She was given the opportunity to ask questions and all questions answered. ? TODAY'S VISIT: Patient is here today for follow-up. Patient reports that she has been doing well for the most part. Patient states that occasionally she will have nausea in the morning. Denies any vomiting. Occasional acid reflux not necessarily related to meals. Currently patient is taking Nexium in the morning and famotidine at bedtime. For the most part she feels like her acid is controlled. Patient denies eating late at night. Denies melena, hematochezia, unintentional weight loss or ribbon like stools. Patient denies dyspepsia, dysphagia or odynophagia. Reports occasional constipation. Patient takes magnesium oxide and stool softeners and reports that it helps. Denies any other GI concerning symptoms [facility] Medical History Type 2 diabetes mellitus AIN grade I Polyposis of colon Tubular adenoma of colon HIV (human immunodeficiency virus infection) Rectal lesion Internal derangement of right shoulder Surgical History H/O: hysterectomy History of esophagogastroduodenoscopy (EGD) Hx of colonoscopy Social History Household Members: Children Alcohol intake: never Comment: shoulder pain is chronic Patient Tobacco Use Status: Never used Tobacco Review of Systems Const Denies weight gain and Denies weight loss ENT Reports no additional complaints, Denies dysphagia and Denies odynophagia Card Reports no additional complaints Resp Reports no additional complaints GI Denies abdominal pain, Denies belching, Denies melena, Denies bloating, Denies change in bowel habits, Reports constipation (Occasional), Denies dysphagia, Denies excessive flatus, Denies dyspepsia, Reports heartburn (Occasional), Denies diarrhea, Denies loose stools, Reports nausea (Occasional), Denies odynophagia and Denies vomiting Reports no additional complaints Musc Reports no additional complaints Neuro Reports no additional complaints Psych Reports no additional complaints Endo Reports no additional complaints Physical Exam Vital Signs: Last Vital Signs Pulse 61 10/15/24 07:45 BP 140/65 H 10/15/24 07:45 Pulse Ox 100 10/15/24 07:45 Oxygen Delivery Method Room Air 10/15/24 07:45 BMI result Body Mass Index 25.6 Const General: healthy appearing, no acute distress and well developed Nutritional Appearance: well nourished Orientation/consciousness: patient oriented x3 Resp Effort & Inspection: normal respiratory effort, able to speak in complete sentences, no tracheal deviation and symmetric chest movement Auscultation: clear to auscultation bilaterally Cardio Rate: regular rate GI Inspection: Yes normal to inspection and No distended Palpation (GI): Soft to palpation, not firm, nontender and No hepatosplenomegaly present Auscultation: normal bowel sounds General: Yes no CVA tenderness Back/Spine/Pelvis Back: no CVA tenderness Skin General skin exam: elasticity normal, turgor normal and dry skin Neuro General: patient oriented x3 Psych Appearance: grossly normal Mental Status: mental status grossly normal Assessment & Plan Assessment & Plan (1) Polyposis of colon: Code(s): K63.5 - Polyp of colon Category: Medical (2) Postprandial epigastric pain: Code(s): R10.13 - Epigastric pain (3) Gastroesophageal reflux disease: Code(s): K21.9 - Gastro-esophageal reflux disease without esophagitis Qualifiers: Esophagitis presence: esophagitis presence not specified Qualified Code(s): K21.9 - Gastro-esophageal reflux disease without esophagitis (4) Postprandial abdominal bloating: Code(s): R14.0 - Abdominal distension (gaseous) (5) Nausea: Code(s): R11.0 - Nausea (6) Constipation: Code(s): K59.00 - Constipation, unspecified Qualifiers: Constipation type: slow transit constipation Qualified Code(s): K59.01 - Slow transit constipation Plan Patient will continue taking Nexium and famotidine. Avoid dietary triggers and late night snacking. Staying upright for minimum 3 hours after meals discussed with patient. Continue stool softeners and magnesium. Increase fluid intake and activity to promote better bowel motility. Will be due to go for colonoscopy in June of next year. She will follow-up in the office in 6 months, sooner on as needed basis. Patient is agreeable to this plan and verbalizes understanding of instructions. She was given the opportunity to ask questions and all questions answered. Thank you for allowing me to participate in her care Coding Level of Care Code Est Pt Level 3 (06417) Diagnoses Polyposis of colon K63.5 Postprandial epigastric pain R10.13 Gastroesophageal reflux disease, unspecified whether esophagitis present K21.9 Esophagitis presence: esophagitis presence not specified Postprandial abdominal bloating R14.0 Nausea R11.0 Slow transit constipation K59.01 Constipation type: slow transit constipation Time Spent (min) 25 Comment 15 minutes spent with patient and additional 10 minutes spent reviewing her records
[2024-10-15 07:45] VITALS: BP 140/65; PULSE 61; O2SAT 100; BMI 25.6
== END 2024-10-15 08:18 | disposition home or self-care (01) ==
PROVIDERS: PCP Registered Nurse; Visit Provider Nurse Practitioner Family
DX: K63.5 Polyp of colon (principal); R10.13 Epigastric pain; K21.9 Gastro-esophageal reflux disease without esophagitis; R14.0 Abdominal distension (gaseous); R11.0 Nausea; K59.01 Slow transit constipation
CPT/HCPCS: 99213

== ENCOUNTER → 2024-10-15 07:40 | Outpatient (BNVA) | payer OTHER, SELFPAY | PROVIDERS: PCP Registered Nurse; Visit Provider Nurse Practitioner Family | DX: K21.9 Gastro-esophageal reflux disease without esophagitis (principal); K63.5 Polyp of colon; R10.13 Epigastric pain; R14.0 Abdominal distension (gaseous); K59.01 Slow transit constipation | CPT/HCPCS: 99212 ==

== ENCOUNTER 2024-11-26 09:22 | Outpatient (AMB) | payer OTHER, SELFPAY ==
--- NOTE | 2024-11-26 09:24 | MHC.OFFVIS ---
Vital Signs 11/26/24 09:30 Height 5 ft 2 in Weight 142 lb BMI 26.0 BP 177/72 H Blood Pressure Location Rt brachial Position Sitting Pulse 69 Intake Visit Reasons: 6 month follow up Intake Note: Patient here for six month follow-up for AIN grade I, dysplasia of anus. Patient c/o: no concerns. Reports no changes in medical hx since last office visit. Colonoscopy: 06-18-2024 Disc Inspector Required: No Accompanied by: Self / Same As Patient Allergies metformin Adverse Reaction (Mild, Verified 11/26/24 09:30) foot swelling lactose Adverse Reaction (Verified 11/26/24 09:30) Intolerance PFSH Medical History Type 2 diabetes mellitus AIN grade I Polyposis of colon Tubular adenoma of colon HIV (human immunodeficiency virus infection) Rectal lesion Internal derangement of right shoulder Surgical History H/O: hysterectomy History of esophagogastroduodenoscopy (EGD) Hx of colonoscopy Social History Household Members: Children Alcohol intake: never Comment: shoulder pain is chronic Patient Tobacco Use Status: Never used Tobacco Coding
--- NOTE | 2024-11-26 09:24 | MHC.OFFVIS ---
Vital Signs 11/26/24 09:30 Height 5 ft 2 in Weight 142 lb BMI 26.0 BP 177/72 H Blood Pressure Location Rt brachial Position Sitting Pulse 69 Intake Visit Reasons: 6 month follow up Allergies metformin Adverse Reaction (Mild, Verified 11/26/24 09:30) foot swelling lactose Adverse Reaction (Verified 11/26/24 09:30) Intolerance HPI HPI 6 month follow up: Details: She is here for follow-up because of a previous history of AIN. She has a known HIV and was diagnosed to have HIV about 19 years ago. Her viral load is undetectable. She used to be followed in [facility]. I last saw her in the office for anoscopy in April,. She was supposed to be undergoing anoscopy every 6 months. She denies any significant anal complaints at this time. She does have known hemorrhoids as well and says that she occasionally sees blood with this. Describes constipation which is chronic. [facility] Medical History Type 2 diabetes mellitus AIN grade I Polyposis of colon Tubular adenoma of colon HIV (human immunodeficiency virus infection) Rectal lesion Internal derangement of right shoulder Surgical History H/O: hysterectomy History of esophagogastroduodenoscopy (EGD) Hx of colonoscopy Social History Household Members: Children Alcohol intake: never Comment: shoulder pain is chronic Patient Tobacco Use Status: Never used Tobacco Review of Systems Const Denies chills Card Denies chest pain, Denies dyspnea and Denies dyspnea on exertion Resp Denies cough, Denies dyspnea and Denies dyspnea on exertion GI Denies change in bowel habits Denies hematuria Musc Denies back pain and Denies limited range of motion Neuro Denies focal weakness and Denies convulsions Psych Denies depression and Denies mood swings Physical Exam Const General: comfortable and no acute distress Resp Effort & Inspection: normal respiratory effort Cardio Rate: regular rate GI Other: Rectal exam shows prominent external hemorrhoids, no lesions Palpation (GI): Soft to palpation, not firm and nontender Office Procedures Anoscopy She was in healing blade-knife position. The anoscope was gently inserted. A full examination of the anal canal was done. There were no lesions seen. There were no fissures or ulcerations. There was no abnormal looking mucosa or anal canal lining. She does have prominent external hemorrhoids. 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 Current anoscopy does not suggest any high-grade lesions. She does have external hemorrhoids. I told her that I can probably repeat her colonoscopy after 1 year. She is welcome to come back to the office if she has any concerns prior to that She does have external hemorrhoids and she describes occasional bleeding from this. She says she has she welcome to me again if she decides to proceed with hemorrhoidectomy. Coding Level of Care Code Est Pt Level 3 (59362) Diagnoses AIN grade I K62.82 CPT Codes Details - CPT: [id number] ([id number])
[2024-11-26 09:30] VITALS: BP 177/72; PULSE 69; BMI 26.0
== END 2024-11-26 09:39 | disposition home or self-care (01) ==
LOC: HO.HGS 09:22
PROVIDERS: PCP Registered Nurse; Visit Provider Surgery
DX: K62.82 Dysplasia of anus (principal)
CPT/HCPCS: 46600; 99213

== ENCOUNTER → 2024-11-26 09:22 | Outpatient (BNVA) | payer OTHER, SELFPAY | PROVIDERS: PCP Registered Nurse; Visit Provider Surgery | DX: K62.82 Dysplasia of anus (principal) | CPT/HCPCS: 46600; 99212 ==

== ENCOUNTER 2025-01-14 09:05 | Outpatient (REF) | payer OTHER, SELFPAY ==
[2025-01-14 11:41] LABS: MANUAL DIFF FLAG NO
[2025-01-14 12:03] LABS: Hematocrit 42.1 % (37.0-47.0); Hemoglobin 13.5 g/dl (12.0-16.0); Imm Gran Abs Auto 0.01 X10*3/uL (0.00-0.03); Imm Gran Pct Auto 0.1 % (0.0-0.4); Lymphocytes Absolute Auto 2.8 X10*3/uL (1.2-4.9); Mean Corpuscular HGB Conc 32.1 g/dl (31.0-35.0); Mean Corpuscular Hemoglobin 30.8 pg (27.0-33.0); Mean Corpuscular Volume 96.1 fL (80.0-98.0); NRBC Abs Auto 0.000 X10*3/uL (0.0-0.012); NRBC Pct Auto 0.0 /100WBC (0.0-0.2); Platelet Count 261 X10*3/uL (160-400); Red Blood Count 4.38 X10*6/uL (4.20-5.50); White Blood Count 7.0 X10*3/uL (4.8-10.8)
[2025-01-14 12:56] LABS: Alanine Aminotransferase 32 U/L (0-31); Albumin Level 4.6 g/dL (3.5-5.0); Alkaline Phosphatase 76 U/L (39-117); Anion Gap 12 (12-20); Aspartate Amino Transferase 32 U/L (5-31); Blood Urea Nitrogen 22 mg/dL (9-16); Calcium 9.2 mg/dL (8.4-10.2); Carbon Dioxide 26 mmol/L (22-29); Chloride 109 mmol/L (96-108); Estimated Glomerular Filt Rate 54; Potassium 3.6 mmol/L (3.3-5.1); Sodium 143 mmol/L (135-145); Total Protein 7.9 g/dL (6.5-8.0)
[2025-01-16 20:18] LABS: Absolute CD3 Count 1762 cells/uL (840-3060); Absolute CD8 Count 876 cells/uL (180-1170); Percent CD3 Cells 64 % (57-85); Percent CD8 Cells 32 % (12-42)
[2025-01-17 03:14] LABS: HIV RNA PCR Qn Copies 38 copies/mL (NOT DETECTED); HIV RNA PCR Qn Log Copies 1.58 (NOT DETECTED)
== END 2025-01-14 09:06 | disposition home or self-care (01) ==
LOC: HO.HHCL 09:05
PROVIDERS: PCP Registered Nurse; Referring Provider Registered Nurse; Visit Provider Internal Medicine
DX: Z21 Asymptomatic human immunodeficiency virus [HIV] infection status (principal); E11.9 Type 2 diabetes mellitus without complications
CPT/HCPCS: 36415; 80053; 83036; 85025; 86359; 86360; 87536